=== PATIENT | male | born 1970 | race Two or more races ===

== ENCOUNTER 2018-02-21 10:47 | Emergency (ER) | payer MEDICAID, SELFPAY ==
[~2018-02-21] VITALS: Ht 167.6 cm; Wt 81.2 kg
[~2018-02-21 10:47] MED LIST: DEPAKOTE250 MG PO
[2018-02-21 11:07] VITALS: BP 131/91
--- NOTE | 2018-02-21 11:24 | Emergency Room Report ---
History of Present Illness General Chief Complaint: Pain Source: Patient Present Illness HPI 48-year-old male presents with left calf numbness that started around 6 AM this morning, it was precipitated by him sitting in a car and laying his leg over the dashboard, when he took it down he noticed it was numb and then it did not gain sensation up until just now and so he decided come in, he currently feels improvement. He denies ever having any pain, he denies any cough, chest pain palpitations, he reports no leg swelling, and he reports he never felt weak it just felt like it was asleep and numb and then he is only now getting sensation. Allergies: Coded Allergies: No Known Allergies (Unverified , 03/27/14) Patient History Past Medical History: see triage record Reviewed Nursing Documentation: PMH: Agreed; PSxH: Agreed Nursing Documentation-PMH Past Medical History: No History, Except For Hx Hypertension: Yes Review of Systems All Other Systems: negative except mentioned in HPI Physical Exam Vital Signs Date Time Temp Pulse Resp B/P (MAP) Pulse Ox O2 Delivery O2 Flow Rate FiO2 02/21/18 10:57 98.1 70 20 131/91 97 Room Air 98.1 Sp02 EP Interpretation: reviewed, normal General Appearance: no apparent distress, alert, non-toxic Head: normocephalic Eyes: bilateral eye normal inspection, bilateral eye PERRL, bilateral eye EOMI ENT: normal ENT inspection, hearing grossly normal, normal pharynx, no angioedema, normal voice, moist mucus membranes Neck: normal inspection, full range of motion, supple, supple/symm/no masses Respiratory: chest non-tender, lungs clear, normal breath sounds, chest symmetrical, palpation of chest normal Cardiovascular #1: normal peripheral pulses, regular rate, rhythm Cardiovascular #2: 2+ radial (R), 2+ radial (L), 2+ dorsalis pedis (R), 2+ dorsalis pedis (L) Gastrointestinal: normal inspection, non tender, soft, no mass, no guarding, no rebound Rectal: deferred Genitourinary: normal inspection, no CVA tenderness Musculoskeletal: back normal, gait/station normal, normal range of motion, non- tender, no calf tenderness, Amna's Sign negative Neurologic: alert, responsive, offset proof press operator III-XII nml as tested, motor strength/tone normal, sensory intact - To light touch and pinprick in all 4 extremities and calves symmetrically, speech normal Psychiatric: judgement/insight normal, memory normal, mood/affect normal, no suicidal/homicidal ideation Skin: normal color, no rash, warm/dry, normal turgor Lymphatic: no adenopathy Medical Decision Making Diagnostic Impression: Primary Impression: Nerve palsy ER Course Patient with resolution of the calf numbness, no evidence for DVT on examination or history, he never had pain or swelling, it was transient numbness that occurred in the distribution distal to where his leg was propped up against the dashboard, I suspect a transient nerve palsy, we will discharge Last Vital Signs Date Time Temp Pulse Resp B/P (MAP) Pulse Ox O2 Delivery O2 Flow Rate FiO2 02/21/18 11:07 98.1 20 131/91 97 Room Air 98.1 02/21/18 10:57 70 Disposition: HOME, SELF-CARE Condition: Stable Referrals: NOT CHOSEN [facility]/,REFERRING (PCP) Alyson Burk MD Patient Instructions: Radial Nerve Palsy ZAIDA GIANG M.D Feb 21, 2018 11:24
[2018-02-21 11:28] VITALS: BP 131/91
== END 2018-02-21 11:32 | disposition home or self-care (01) ==
LOC: EMR 11:21
DX: G58.8 Other specified mononeuropathies (principal); I10 Essential (primary) hypertension
CPT/HCPCS: 99282

== ENCOUNTER 2019-02-18 00:23 | Emergency (ER) | payer MEDICAID ==
[~2019-02-18] VITALS: Ht 167.6 cm; Wt 77.1 kg
--- NOTE | 2019-02-18 01:03 | Emergency Room Report ---
History of Present Illness General Chief Complaint: Headache Source: Patient Present Illness HPI Denies this is a 49-year-old [place] man with a history of hypertension. He presents with chief complaint of headache and hypertension. Onset for last 5 days. No nausea no vomiting. Pain is throbbing and diffuse in nature. He went to [place] twice in the last week already. CAT scan and blood work normal per patient. He is only taking 5 mg of amlodipine. He said his blood pressure was in the 180 systolic tonight. He took an extra dose of amlodipine before coming in. No focal deficit. No other complaint. Allergies: Coded Allergies: No Known Allergies (Unverified , 03/27/14) Patient History Past Medical History: see triage record, old chart reviewed, HTN Past Surgical History: none Pertinent Family History: none Social History: Denies: smoking Immunizations: other Reviewed Nursing Documentation: PMH: Agreed; PSxH: Agreed Nursing Documentation-PMH Hx Hypertension: Yes Review of Systems Eye: Denies: eye pain, blurred vision ENT: Denies: ear pain, nose congestion, throat swelling Respiratory: Denies: cough, shortness of breath Cardiovascular: Denies: chest pain, palpitations Gastrointestinal: Denies: abdominal pain, diarrhea, nausea, vomiting Musculoskeletal: Denies: back pain, joint pain Skin: Denies: rash Neurological: Reports: headache; Denies: numbness Endocrine: Denies: increased thirst, increased urine Hematologic/Lymphatic: Denies: easy bruising All Other Systems: negative except mentioned in HPI Physical Exam Vital Signs Date Time Temp Pulse Resp B/P (MAP) Pulse Ox O2 Delivery O2 Flow Rate FiO2 02/18/19 00:47 98.4 96 17 128/92 (104) 97 Room Air Levels unremarkable Sp02 EP Interpretation: reviewed, normal General Appearance: well appearing, no apparent distress, alert Head: normocephalic, atraumatic Eyes: bilateral eye PERRL, bilateral eye EOMI ENT: hearing grossly normal, normal pharynx Neck: full range of motion, supple, no meningismus Respiratory: chest non-tender, lungs clear, normal breath sounds Cardiovascular #1: regular rate, rhythm, no murmur Gastrointestinal: normal bowel sounds, non tender, no mass, no organomegaly, no bruit, non-distended Musculoskeletal: back normal, gait/station normal, normal range of motion Psychiatric: mood/affect normal Medical Decision Making Diagnostic Impression: Primary Impression: Headache Qualified Codes: G44.209 - Tension-type headache, unspecified, not intractable Additional Impression: Hypertension Qualified Codes: I10 - Essential (primary) hypertension ER Course Patient presents with headache. He had work-up with labs and CT scan at [place] already. I see no need to repeat. Blood pressure unremarkable. Will discharge home. Last Vital Signs Date Time Temp Pulse Resp B/P (MAP) Pulse Ox O2 Delivery O2 Flow Rate FiO2 02/18/19 00:47 98.4 96 17 128/92 (104) 97 Room Air Status: improved Disposition: HOME, SELF-CARE Scripts Ibuprofen* (MOTRIN*) 600 Mg Tablet 600 MG ORAL THREE TIMES A DAY, #30 TAB 0 Refills Prov: Rai Barros MD 02/18/19 Amlodipine Besylate (Norvasc) 10 Mg Tablet 10 MG ORAL DAILY, #90 TAB Prov: Rai Barros MD 02/18/19 Referrals: [facility],REFERRING (PCP) Patient Instructions: Tension Headache Additional Instructions: Increase your amlodipine to 10 mg a day. Follow-up with your doctor in 7 days. Return if symptoms worsen. Rai Barros MD Feb 18, 2019 01:03
[2019-02-18 01:08] VITALS: BP 128/92
--- NOTE | 2019-02-18 01:09 | NUR ---
ER Nurse Note: Pt came to from home c/o headache since 5 days. Pt stated he took more of his prescribed BP med but headache is presistant. BP in triage normotensive. Pt a&ox4, VSS, no signs of distress. Pt stated he has been anxious due to headache. [facility]
[2019-02-18] MEDS ORDERED: NORVASC10 MG ORAL (01:15)
[2019-02-18] MEDS ORDERED: IBUPROFEN600 MG ORAL (01:15)
--- NOTE | 2019-02-18 01:24 | NUR ---
ER DISCHARGE NOTE: Patient is cleared to be discharged per ERMD, pt is aox4, on room air, with stable vital signs. pt was given dc and prescription instructions, pt was able to verbalize understanding, pt id band removed without complications. pt is able to ambulate with steady gait. pt took all belongings.
[2019-02-18 01:25] VITALS: BP 128/92
== END 2019-02-18 01:29 | disposition home or self-care (01) ==
LOC: EMR 00:35
DX: G44.209 Tension-type headache, unspecified, not intractable (principal); I10 Essential (primary) hypertension
CPT/HCPCS: 99282

== ENCOUNTER 2019-02-24 16:23 | Emergency (ER) | payer MEDICAID ==
[~2019-02-24] VITALS: Ht 170.2 cm; Wt 81.6 kg
[~2019-02-24 16:23] MED LIST changes: +IBUPROFEN600 MG ORAL; +NORVASC10 MG ORAL
[2019-02-24] MEDS ORDERED: HALOPERIDOL5 MG ORAL (16:30)
[2019-02-24 17:05] VITALS: BP 138/96
--- NOTE | 2019-02-24 17:06 | NUR ---
ED Nurse Note: pt walked in due sleeplessness for 10 days, pt stated he cant sleep because he runout of his medication, haldol 5mg, benzotropine 1mg, and depakote 500mg. pt denies si, pt aox4. pt is seen by marlon gilliam. will continue to monitor
[2019-02-24] MEDS ORDERED: DiphenhydrAMINE 50mg/ml Inj IM ONE (17:15)
--- NOTE | 2019-02-24 17:29 | Emergency Room Report ---
History of Present Illness General Chief Complaint: Medication Refill Source: Medical Record Present Illness HPI 49 YO male presents to the ED c/o being out of his psychiatric medications x 10- 11 days. he reports Not sleeping in 11 days due to being out of medications. Pt. describes abrupt discontinuation of his psychiatric medications that he has been on for years. Pt. reports having auditory hallucinations, irritability and 3/10 in severity generalized BELLO. Denies sudden onset of BELLO. Denies manic symptoms. Pt. denies drug use. He reports 2 previous psychiatric hospitalizations. Pt. denies SI/HI. Pt. states he takes Haldol 5mg and Cogentin Daily. He reports he requires a new psychiatric provider for medication management as his no longer available. Denies PSA's. Allergies: Coded Allergies: No Known Allergies (Unverified , 03/27/14) Patient History Past Medical History: see triage record, psych hx - schizophrenia Past Surgical History: none Pertinent Family History: none Reviewed Nursing Documentation: PMH: Agreed; PSxH: Agreed Nursing Documentation-PMH Past Medical History: No History, Except For Hx Hypertension: Yes History Of Psychiatric Problem: Yes - bipolar Review of Systems All Other Systems: negative except mentioned in HPI Physical Exam Vital Signs Date Time Temp Pulse Resp B/P (MAP) Pulse Ox O2 Delivery O2 Flow Rate FiO2 02/24/19 16:32 97.9 87 18 138/96 (110) 96 Room Air Sp02 EP Interpretation: reviewed, normal General Appearance: no apparent distress, alert, GCS 15, non-toxic Head: normocephalic, atraumatic Eyes: bilateral eye normal inspection, bilateral eye PERRL ENT: hearing grossly normal, normal voice Neck: full range of motion Respiratory: lungs clear, normal breath sounds, speaking full sentences Cardiovascular #1: regular rate, rhythm Gastrointestinal: non tender, soft Genitourinary: normal inspection Musculoskeletal: back normal, gait/station normal, normal range of motion, non- tender Neurologic: alert, oriented x3, responsive, motor strength/tone normal, sensory intact, speech normal, grossly normal Psychiatric: judgement/insight normal, mood/affect normal, no suicidal/ homicidal ideation, other - not responding to internal stimuli. Lymphatic: no adenopathy Medical Decision Making PA Attestation Dr. Schmid Is my supervising Physician whom patient management has been discussed with. Diagnostic Impression: Primary Impression: Encounter for medication refill Additional Impressions: Schizophrenia Qualified Codes: F20.9 - Schizophrenia, unspecified Insomnia disorder Qualified Codes: G47.00 - Insomnia, unspecified ER Course 49 YO male presents to the ED c/o being out of his psychiatric medications x 10- 11 days. he reports Not sleeping in 11 days due to being out of medications. Pt. describes abrupt discontinuation of his psychiatric medications that he has been on for years. Pt. reports having auditory hallucinations, irritability and 3/10 in severity generalized BELLO. Denies sudden onset of BELLO. Denies manic symptoms. Pt. denies drug use. He reports 2 previous psychiatric hospitalizations. Pt. denies SI/HI. Pt. states he takes Haldol 5mg and Cogentin Daily. He reports he requires a new psychiatric provider for medication management as his no longer available. Denies PSA's. Pt is hyperactive, and has a very anxious and restless affect. Ddx considered but are not limited to OD, SI/HI, psychosis, UTI, intoxication, manic episode just to name a few. Vital signs: are WNL, pt. is afebrile H&PE are most consistent with behavioral/mental health issue requiring medication refill ORDERS:None required at this time. ED INTERVENTIONS: - 5mg Haldol PO -50mg Benadryl IM -500mg Depakote PO -I do not identify an emergent condition at this time. With current presentation , pt. is stable for close outpatient follow up and conservative treatment. D/ w pt. to return promptly to ED with worsening or new symptoms.- Pt. verbalizes' understanding and agreement with proposed treatment plan. DISCHARGE: At this time pt. is stable for d/c to home. Will provide printed patient care instructions, and any necessary prescriptions. Care plan and follow up instructions have been discussed with the patient prior to discharge. Last Vital Signs Date Time Temp Pulse Resp B/P (MAP) Pulse Ox O2 Delivery O2 Flow Rate FiO2 02/24/19 17:05 97.9 87 18 138/96 96 Room Air Disposition: HOME, SELF-CARE Condition: Stable Scripts Divalproex Sodium (Depakote) 500 Mg Tablet. 500 MG PO BID for 14 Days, #28 TAB Prov: Odette Block 02/24/19 Benztropine Mesylate* (COGENTIN*) 0.5 Mg Tablet 1 MG PO DAILY for 14 Days, #28 TAB Prov: Odette Block 02/24/19 Haloperidol (Haloperidol) 5 Mg Tablet 5 MG ORAL DAILY, #14 TAB 0 Refills Prov: Odette Block 02/24/19 Referrals: [facility] Patient Instructions: Medicine Refill at the Emergency Department, Schizophrenia Additional Instructions: Take medications as directed. Follow up with a Mental Health Specialist/ Psychiatrist in 3 days, even if your symptoms have resolved. --Please review [facility] [[email or web address] resource information provided Return sooner to ED if new symptoms occur, or current symptoms become worse. - Please note that this Emergency Department Report was dictated using [employer] technologist technology software, occasionally this can lead to erroneous entry secondary to interpretation by the dictation equipment. Odette Block Feb 24, 2019 17:29
--- NOTE | 2019-02-24 17:30 | NUR ---
ED Nurse Note: pt medicated as ordered. pt able to tolerate meds. will continue to monitor.
[2019-02-24] MEDS ORDERED: DEPAKOTE500 MG PO (17:48)
[2019-02-24] MEDS ORDERED: BENZTROPINE ME0.5 MG PO (17:48)
[2019-02-24] MEDS ORDERED: HALDOL5 MG ORAL (17:48)
[2019-02-24] MEDS ORDERED: Depakote 500mg tab ORAL ONE (18:00)
--- NOTE | 2019-02-24 18:08 | NUR ---
ED Nurse Note: pt medicated as ordered. pt able to tolerate po meds
[2019-02-24 18:10] VITALS: BP 138/96
== END 2019-02-24 18:10 | disposition home or self-care (01) ==
LOC: EMR 17:20
DX: F20.9 Schizophrenia, unspecified (principal); G47.00 Insomnia, unspecified; Z76.0 Encounter for issue of repeat prescription; I10 Essential (primary) hypertension; F31.9 Bipolar disorder, unspecified
CPT/HCPCS: 96372; 99283; J1200

== ENCOUNTER 2019-03-10 22:26 | Emergency (ER) | payer MEDICAID ==
[~2019-03-10] VITALS: Ht 167.6 cm; Wt 77.1 kg
[~2019-03-10 22:26] MED LIST changes: +BENZTROPINE ME0.5 MG PO; +DEPAKOTE500 MG PO; +HALDOL5 MG ORAL; +HALOPERIDOL5 MG ORAL
[2019-03-10 23:00] VITALS: BP 138/98
--- NOTE | 2019-03-10 23:33 | NUR ---
ED Nurse Note: PT WALKED IN C/O PAIN IN NECK AND HEAD X 3 DAYS. DENIES ANY RECENT INJURIES. DENIES N/V NOR PHOTOPHOBIA AT THIS TIME BUT REPORTS DIZZINESS. PT AMBULATORY W/STEADY GAIT, VSS, RESP EVEN AND UNLABORED ON RA, WILL CONT MONITOR.
[2019-03-11] MEDS ORDERED: Ketorolac 60mg Inj IM ONE (00:30)
[2019-03-11] MEDS ORDERED: HYDROcodone/Acetamin 5/325 tab ORAL ONE (00:30)
[2019-03-11] MEDS ORDERED: HALOPERIDOL5 MG ORAL (00:46)
[2019-03-11] MEDS ORDERED: BENZTROPINE ME0.5 MG PO (00:46)
--- NOTE | 2019-03-11 00:52 | NUR ---
ED Nurse Note: pt cleared to be d/c per ERMD, pt discharge and aftercare instruction provided w/ prescription, pt education done via discussion and handout, pt advised to follow up with pcp or return to ed if changes in condition, vss, ambulatory w/ steady gait, left w/ all belongings.
[2019-03-11 00:54] VITALS: BP 127/56
--- NOTE | 2019-03-11 02:12 | Emergency Room Report ---
History of Present Illness General Chief Complaint: Headache Source: Patient Present Illness HPI Patient presents with complaints of headache reports that he feels the pain in the occipital region across both sides Pain came on about 2 days ago and has been slowly progressing denies any focal weakness denies any fall or trauma Denies any chest pain or shortness of breath Denies any fevers denies any photophobia Patient reports that he has had headaches in the past and this feels fairly similar to that After further questioning patient also requesting refill of some of his psychiatric medications Allergies: Coded Allergies: No Known Allergies (Unverified , 03/27/14) Patient History Past Medical History: see triage record Reviewed Nursing Documentation: PMH: Agreed; PSxH: Agreed Nursing Documentation-PMH Past Medical History: No History, Except For Hx Hypertension: Yes Review of Systems All Other Systems: negative except mentioned in HPI Physical Exam Vital Signs Date Time Temp Pulse Resp B/P (MAP) Pulse Ox O2 Delivery O2 Flow Rate FiO2 03/10/19 22:30 98.4 97 22 146/99 (115) 97 Room Air Sp02 EP Interpretation: reviewed, normal General Appearance: well appearing, no apparent distress Head: normocephalic, atraumatic Eyes: bilateral eye PERRL, bilateral eye EOMI ENT: hearing grossly normal, normal pharynx, TMs + canals normal, uvula midline Neck: full range of motion, supple, no meningismus, no bony tend Respiratory: lungs clear, normal breath sounds, no rhonchi, no respiratory distress, no retraction, no accessory muscle use Cardiovascular #1: normal peripheral pulses, regular rate, rhythm, no edema, no gallop, no JVD, no murmur Gastrointestinal: normal bowel sounds, non tender, soft, no mass, no organomegaly, non-distended, no guarding, no hernia, no pulsatile mass, no rebound Genitourinary: no CVA tenderness Musculoskeletal: normal inspection Neurologic: oriented x3, responsive, transcript clerk III-XII nml as tested, motor strength/ tone normal, sensory intact Psychiatric: mood/affect normal Skin: no rash Lymphatic: normal inspection, no adenopathy Medical Decision Making Diagnostic Impression: Primary Impression: Headache ER Course Multiple differentials including but not limited to neurological, neurosurgical , infectious pathology entertained Patient has a benign neurological exam is treated for his pain and feels significantly improved I did provide several medications for outpatient Continuation however he understands the importance of close outpatient follow- up for further medication Last Vital Signs Date Time Temp Pulse Resp B/P (MAP) Pulse Ox O2 Delivery O2 Flow Rate FiO2 03/11/19 00:54 98.4 03/11/19 00:54 89 18 127/56 98 Room Air Status: improved Disposition: HOME, SELF-CARE Condition: Improved Scripts Haloperidol (HALOPERIDOL) 5 Mg Tablet 5 MG ORAL DAILY, #10 TAB 0 Refills Prov: Giovanna Boston DO 03/11/19 Benztropine Mesylate* (COGENTIN*) 0.5 Mg Tablet 0.5 MG PO DAILY, #10 TAB Prov: Giovanna Boston DO 03/11/19 [facility],REFERRING (PCP) Patient Instructions: General Headache Without Cause Additional Instructions: Patient is provided with the discharge instructions notified to follow up with primary doctor in the next 2-3 days otherwise return to the er with any worsening symptoms. Please note that this report is being documented using [employer] technology. This can lead to erroneous entry secondary to incorrect interpretation by the dictating instrument. Giovanna Boston DO Mar 11, 2019 02:12
== END 2019-03-11 00:54 | disposition home or self-care (01) ==
LOC: EMR 22:49
DX: R51 Headache (principal); I10 Essential (primary) hypertension
CPT/HCPCS: 96372; 99283

== ENCOUNTER 2019-04-01 03:35 | Emergency (ER) | payer MEDICAID ==
[~2019-04-01] VITALS: Ht 170.2 cm; Wt 81.6 kg
[2019-04-01 03:51] VITALS: BP 143/98
[2019-04-01] MEDS ORDERED: HYDROCHLOROTHIA25 MG ORAL (04:00)
--- NOTE | 2019-04-01 04:00 | Emergency Room Report ---
History of Present Illness General Chief Complaint: Hypertension Source: Patient Present Illness HPI This is a 49-year-old male with history of hypertension. He take Norvasc for this. He presents with chief complaint of high blood pressure. He said at home his blood pressure 160/107. He did not take any medication. He has no symptoms. No nausea no vomiting. No headache. No chest pain. No shortness of breath. Allergies: Coded Allergies: No Known Allergies (Unverified , 03/27/14) Patient History Past Medical History: see triage record, old chart reviewed, HTN Past Surgical History: none Pertinent Family History: none Social History: Denies: smoking Immunizations: other Reviewed Nursing Documentation: PMH: Agreed; PSxH: Agreed Nursing Documentation-PMH Past Medical History: No History, Except For Hx Hypertension: Yes Review of Systems Eye: Denies: eye pain, blurred vision ENT: Denies: ear pain, nose congestion, throat swelling Respiratory: Denies: cough, shortness of breath Cardiovascular: Denies: chest pain, palpitations Gastrointestinal: Denies: abdominal pain, diarrhea, nausea, vomiting Musculoskeletal: Denies: back pain, joint pain Skin: Denies: rash Neurological: Denies: headache, numbness Endocrine: Denies: increased thirst, increased urine Hematologic/Lymphatic: Denies: easy bruising All Other Systems: negative except mentioned in HPI Physical Exam Vital Signs Date Time Temp Pulse Resp B/P (MAP) Pulse Ox O2 Delivery O2 Flow Rate FiO2 04/01/19 03:37 98.2 85 16 143/98 (113) 95 Room Air Vitals with high blood pressure Sp02 EP Interpretation: reviewed, normal General Appearance: well appearing, no apparent distress, alert Head: normocephalic, atraumatic Eyes: bilateral eye PERRL, bilateral eye EOMI ENT: hearing grossly normal, normal pharynx Neck: full range of motion, supple, no meningismus Respiratory: chest non-tender, lungs clear, normal breath sounds Cardiovascular #1: regular rate, rhythm, no murmur Gastrointestinal: normal bowel sounds, non tender, no mass, no organomegaly, no bruit, non-distended Musculoskeletal: back normal, gait/station normal, normal range of motion Psychiatric: mood/affect normal Medical Decision Making Diagnostic Impression: Primary Impression: Hypertension Qualified Codes: I10 - Essential (primary) hypertension ER Course Patient with high blood pressure. Without any intervention, his blood pressure right now is 135/93. We will add a water pill. No evidence of ACS, PE, dissection or endorgan damage. Will discharge home. Last Vital Signs Date Time Temp Pulse Resp B/P (MAP) Pulse Ox O2 Delivery O2 Flow Rate FiO2 04/01/19 03:51 98.2 16 143/98 95 Room Air 04/01/19 03:51 85 Status: improved Disposition: HOME, SELF-CARE Condition: Stable Scripts Hydrochlorothiazide* (HYDROCHLOROTHIAZIDE*) 25 Mg Tablet 25 MG ORAL DAILY, #30 TAB Prov: Rai Barros MD 04/01/19 Additional Instructions: Follow-up with your doctor in 7 days for recheck. Return if worse. Rai Barros MD Apr 01, 2019 04:00
[2019-04-01 04:10] VITALS: BP 143/98
== END 2019-04-01 04:11 | disposition home or self-care (01) ==
LOC: EMR 03:59
DX: I10 Essential (primary) hypertension (principal)
CPT/HCPCS: 99282

== ENCOUNTER 2019-04-04 03:01 | Emergency (ER) | payer MEDICAID ==
[~2019-04-04] VITALS: Ht 170.2 cm; Wt 81.6 kg
[~2019-04-04 03:01] MED LIST changes: +HYDROCHLOROTHIA25 MG ORAL
--- NOTE | 2019-04-04 03:33 | Emergency Room Report ---
History of Present Illness General Chief Complaint: Headache Source: Patient Present Illness HPI Patient 49-year-old male presents for increased headache. Patient reports having increased occipital headache. He reports having intermittent episodes of headache for approximately 1 month. He states that he had previous negative CT imaging at [place] approximately 1 month ago. He denies any fever. He reports having prior history of hypertension. He reports taking amlodipine. He states that he is also bipolar and has been taking Depakote as well as haloperidol. He denies any fever. He denies any neck stiffness. He denies any extremity weakness. Allergies: Coded Allergies: No Known Allergies (Unverified , 03/27/14) Patient History Past Medical History: see triage record Reviewed Nursing Documentation: PMH: Agreed; PSxH: Agreed Nursing Documentation-PMH Hx Hypertension: Yes History Of Psychiatric Problem: Yes - Bipolar Review of Systems All Other Systems: negative except mentioned in HPI Physical Exam Vital Signs Date Time Temp Pulse Resp B/P (MAP) Pulse Ox O2 Delivery O2 Flow Rate FiO2 04/04/19 03:04 98.2 101 16 146/97 (113) 95 Room Air Sp02 EP Interpretation: reviewed, normal General Appearance: normal inspection, well appearing, no apparent distress, alert, GCS 15, Chronically Ill Head: atraumatic ENT: normal ENT inspection, normal voice Neck: normal inspection, full range of motion, supple, no bony tend Respiratory: normal inspection, lungs clear, normal breath sounds, no respiratory distress, no retraction, no wheezing Cardiovascular #1: regular rate, rhythm, no edema Gastrointestinal: normal inspection, normal bowel sounds, non tender, soft, no guarding, no hernia Genitourinary: no CVA tenderness Musculoskeletal: normal inspection, back normal, normal range of motion Neurologic: normal inspection, alert, oriented x3, responsive, structural engineering project manager III-XII nml as tested, speech normal Psychiatric: normal inspection, judgement/insight normal, mood/affect normal Medical Decision Making Diagnostic Impression: Primary Impression: Headache ER Course Patient presented for headache. Differential diagnoses included but was not limited to skull fracture, subarachnoid hemorrhage, meningitis, aneurysm, mass lesion, intracranial hemorrhage. Per patient's report he has had recent imaging of his head. CT imaging and previously been performed at [place]. Patient does not appear to be in any acute distress. His blood pressure appears to be adequately controlled at this time. Because of complexity of patient's case laboratory tests were ordered. Last Vital Signs Date Time Temp Pulse Resp B/P (MAP) Pulse Ox O2 Delivery O2 Flow Rate FiO2 04/04/19 03:04 98.2 101 16 146/97 (113) 95 Room Air Jimi Higgins MD Apr 04, 2019 03:33
--- NOTE | 2019-04-04 03:41 | NUR ---
ED Nurse Note: pt walked in c/o chronic headache and high blood pressure, pt reports when he took the bp at home it was 169/117, bp at the bedside 130/85. pt denies cp, denies sob, ambulatory w/ steady gait, no weakness noted, AA&ox4, gcs=15, skin warm and dry, resp even and unlabored on RA, vss, NSR on diagnostic cardiac sonographer, will cont monitor.
[2019-04-04 03:44] VITALS: BP 130/85
[2019-04-04 03:50] LABS: BASOPHILS % (AUTO) 0.7 % (0.0-2.0); EOSINOPHILS % (AUTO) 8.2 % (0.0-3.0); HEMOGLOBIN 14.5 G/DL (14.2-18.0); MEAN CORPUSCULAR VOLUME 89 FL (80-99); MONOCYTES % (AUTO) 7.2 % (1.0-10.0); NEUTROPHILS % (AUTO) 59.9 % (45.0-75.0); PLATELET COUNT 232 K/UL (150-450); RED BLOOD COUNT 4.73 M/UL (4.70-6.10); RED CELL DISTRIBUTION WIDTH 10.9 % (11.6-14.8)
[2019-04-04 04:00] LABS: ANION GAP 12 mmol/L (5-15); BLOOD UREA NITROGEN 12 mg/dL (7-18); CALCIUM 9.2 MG/DL (8.5-10.1); CARBON DIOXIDE 24 MMOL/L (21-32); CHLORIDE 107 MMOL/L (98-107); CREATININE 0.9 MG/DL (0.55-1.30); POTASSIUM 3.6 MMOL/L (3.5-5.1); SODIUM 143 MMOL/L (136-145)
[2019-04-04 04:04] LABS: ALANINE AMINOTRANSFERASE 32 U/L (12-78); ALBUMIN 4.4 G/DL (3.4-5.0); ALBUMIN/GLOBULIN RATIO 1.6 (1.0-2.7); ALKALINE PHOSPHATASE 50 U/L (46-116); ASPARTATE AMINO TRANSFERASE 16 U/L (15-37); BILIRUBIN,TOTAL 0.5 MG/DL (0.2-1.0)
[2019-04-04] MEDS ORDERED: DiphenhydrAMINE 50mg/ml Inj IVP ONE (04:30)
[2019-04-04 05:08] VITALS: BP 130/85
--- NOTE | 2019-04-04 05:09 | NUR ---
ER DISCHARGE NOTE: Patient is cleared to be discharged per ERMD, pt is aox4, on room air, with stable vital signs. pt was given dc and prescription instructions, pt was able to verbalize understanding, pt id band and iv site removed without complications. pt is able to ambulate with steady gait. pt took all belongings.
== END 2019-04-04 05:09 | disposition home or self-care (01) ==
LOC: EMR 03:21
DX: R51 Headache (principal); F31.9 Bipolar disorder, unspecified; I10 Essential (primary) hypertension
CPT/HCPCS: 36415; 80053; 80164; 85025; 96374; 96375; 99284; J0780; J1200; J7040

== ENCOUNTER 2019-06-14 03:26 | Emergency (ER) | payer MEDICAID ==
[~2019-06-14] VITALS: Ht 170.2 cm; Wt 81.6 kg
[2019-06-14 03:49] VITALS: BP 151/85
--- NOTE | 2019-06-14 03:51 | NUR ---
ER Nurse Note: Pt walked in c/o itching in RT groin area for one week. Pt stated unk cause. Site clean, intact. Denies trauma, dischage, painful urination. Will continue to montior.
[2019-06-14] MEDS ORDERED: CLOTRIMAZOLE30 GM TP (04:00)
[2019-06-14] MEDS ORDERED: HydrOXYzine tab 25mg tab ORAL ONE (04:00)
[2019-06-14] MEDS ORDERED: BENADRYL25 MG ORAL (04:00)
--- NOTE | 2019-06-14 04:20 | Emergency Room Report ---
History of Present Illness General Chief Complaint: Skin Rash/Abscess Source: Patient Present Illness HPI Patient is a 49-year-old male who presented after increased rash to his genital area. Patient states this is been there for at least 1 week. He reports having used topical medications without any improvement. He cannot state the name of the medications which she is using. He reports of increased generalized itchiness. He reports taking psychiatric medications but denies any other medications other than Norvasc. He cannot recall what medications he is using. He denies any general discharge. He reports having some itchiness to his scrotal area as well as to his inguinal areas. Denies other locations of discomfort. Allergies: Coded Allergies: No Known Allergies (Unverified , 03/27/14) Patient History Past Medical History: see triage record Reviewed Nursing Documentation: PMH: Agreed; PSxH: Agreed Nursing Documentation-PMH Hx Hypertension: Yes Review of Systems All Other Systems: negative except mentioned in HPI Physical Exam Vital Signs Date Time Temp Pulse Resp B/P (MAP) Pulse Ox O2 Delivery O2 Flow Rate FiO2 06/14/19 03:37 98.1 84 18 151/85 (107) 99 Room Air General Appearance: well appearing, no apparent distress, alert, GCS 15 Head: normocephalic, atraumatic ENT: hearing grossly normal, normal voice Neck: full range of motion, supple Respiratory: no respiratory distress, speaking full sentences Neurologic: normal inspection, alert, oriented x3, responsive, normal gait Psychiatric: depressed affect Skin: rash - excoriated to patch of scrotum Medical Decision Making Diagnostic Impression: Primary Impression: Tinea cruris ER Course Patient presented for skin rash. Differential diagnosis included but was not limited to tinea cruris, hidradenitis suppuritiva, cellulitis among others. Patient has a benign exam does not appear to require any laboratory testing at this time. Patient appears to have a excoriated area to his perineal area which appears to be a fungal infection. There does not appear to be any evidence of secondary infection at this time. Patient was given prescription for anti-itching medications as well as topical antifungal medication. Last Vital Signs Date Time Temp Pulse Resp B/P (MAP) Pulse Ox O2 Delivery O2 Flow Rate FiO2 06/14/19 03:49 98.1 76 18 151/85 99 Room Air Status: improved Disposition: HOME, SELF-CARE Condition: Stable Scripts Diphenhydramine Hcl* (BENADRYL*) 25 Mg Capsule 25 MG ORAL Q6H PRN for Itching, #30 CAP Prov: Jimi Higgins MD 06/14/19 Clotrimazole (Clotrimazole) 30 Gm Cream..g. 30 GM TP TWICE A DAY, #30 GM Prov: Jimi Higgins MD 06/14/19 Referrals: [facility],REFERRING (PCP) Patient Instructions: Rash Additional Instructions: Follow up with your doctor for recheck. Avoid scratching the area Jimi Higgins MD Jun 14, 2019 04:20
[2019-06-14 04:25] VITALS: BP 151/85
--- NOTE | 2019-06-14 04:25 | NUR ---
ER Nurse Note: Patient seen, treated, medically cleared to be discharged per ERMD. Discharge instructions and prescriptons given with repeat verbalization by pt. Instructed pt to follow up with primary care physican within one week. Pt is aox4, on room air, with stable vital signs. ID band removed. Pt ambulatory; left with all belongings.
== END 2019-06-14 04:25 | disposition home or self-care (01) ==
LOC: EMR 04:00
DX: B35.6 Tinea cruris (principal); I10 Essential (primary) hypertension
CPT/HCPCS: 99282

== ENCOUNTER 2019-12-01 01:25 | Emergency (ER) | payer MEDICAID ==
[~2019-12-01] VITALS: Ht 167.6 cm; Wt 81.6 kg
[~2019-12-01 01:25] MED LIST changes: +BENADRYL25 MG ORAL; +CLOTRIMAZOLE30 GM TP
[2019-12-01 01:30] VITALS: BP 147/96
--- NOTE | 2019-12-01 01:30 | NUR ---
ED Nurse Note: Pt ambulated to ED from home c/o 05/08 headache x3days, pt states he has not been able to sleep for 10 days. Pt has HTN and has been compliant, denies trauma or N/V. VSS BP 146/96. Pt is A&Ox4. ERMD at bedside
[2019-12-01] MEDS ORDERED: DiphenhydrAMINE 50mg/ml Inj IVP ONE (01:45)
--- NOTE | 2019-12-01 01:52 | Emergency Room Report ---
History of Present Illness General Chief Complaint: Headache Source: Patient Present Illness HPI 49-year-old male history of bipolar disorder, hypertension, chronic headache presented for acute on chronic headache. Patient has been seen multiple times here in the past for headache. He states he was seen at [place] recently as well for headache. He states that headache is been persistent for the past week. Occipital nonradiating. No fevers no nausea no vomiting. Headache does improve with Tylenol but does return. He also states he has been out of his medication, Haldol benztropine and Depakote for the last week. Pain is currently 10 out of 10. He has not been able to sleep for the past week either. Allergies: Coded Allergies: No Known Allergies (Unverified , 03/27/14) COVID-19 Screening Contact w/high risk pt: No Recent Travel to affected area: No Experienced COVID-19 symptoms?: No Patient History Reviewed Nursing Documentation: PMH: Agreed; PSxH: Agreed Nursing Documentation-PMH Past Medical History: No History, Except For Hx Hypertension: Yes History Of Psychiatric Problem: Yes - anxiety Review of Systems All Other Systems: negative except mentioned in HPI Physical Exam Vital Signs Date Time Temp Pulse Resp B/P (MAP) Pulse Ox O2 Delivery O2 Flow Rate FiO2 12/01/19 01:30 98.2 109 22 147/96 (113) 93 Room Air Sp02 EP Interpretation: reviewed, normal General Appearance: well appearing, no apparent distress Head: normocephalic, atraumatic Eyes: bilateral eye PERRL, bilateral eye EOMI ENT: hearing grossly normal, moist mucus membranes Neck: full range of motion, supple Respiratory: lungs clear, normal breath sounds, no rhonchi, no respiratory distress, no retraction, no wheezing Cardiovascular #1: normal peripheral pulses, regular rate, rhythm, no murmur Gastrointestinal: non tender, soft, non-distended, no guarding Neurologic: alert, 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 He has been seen multiple times in the past for the same. He has had CT scans in the past which were normal. His neurologic exam was benign. My differential included but not limited to migraine headache, dehydration, medication withdrawal, did consider stroke, mass lesions however with his exam leave this is less likely. Clinical course-patient given migraine cocktail including IV fluids, Compazine and Benadryl. On reassessment patient feeling improved. On reevaluation: Pain improved patient resting comfortably Plan-discharge home with outpatient follow-up. I did refill his outpatient medications which I do believe will assist in his insomnia and as well. Last Vital Signs Date Time Temp Pulse Resp B/P (MAP) Pulse Ox O2 Delivery O2 Flow Rate FiO2 12/01/19 01:30 98.2 109 22 147/96 (113) 93 Room Air Status: improved Disposition: HOME, SELF-CARE Condition: Improved Scripts Benztropine Mesylate* (COGENTIN*) 0.5 Mg Tablet 0.5 MG PO DAILY, #10 TAB Prov: Abdulkadir Rowell M.D. 12/01/19 Haloperidol (HALOPERIDOL) 5 Mg Tablet 5 MG ORAL DAILY, #30 TAB 0 Refills Prov: Abdulkadir Rowell M.D. 12/01/19 Divalproex Sodium* (DEPAKOTE*) 250 Mg Tablet. 500 MG PO Q12HR for 30 Days, #120 TAB Prov: Abdulkadir Rowell M.D. 12/01/19 Referrals: [facility],REFERRING (PCP) Abdulkadir Rowell M.D. December 01, 2019 01:52
--- NOTE | 2019-12-01 03:30 | NUR ---
ED Nurse Note: Pt resting in bed side lying, non-labored breathing. No signs of distress. Will continue to monitor
[2019-12-01] MEDS ORDERED: DEPAKOTE250 MG PO (04:08)
[2019-12-01] MEDS ORDERED: HALOPERIDOL5 MG ORAL (04:08)
[2019-12-01] MEDS ORDERED: BENZTROPINE ME0.5 MG PO (04:08)
[2019-12-01 04:15] VITALS: BP 147/96
== END 2019-12-01 04:15 | disposition home or self-care (01) ==
LOC: EMR 01:38
DX: R51 Headache (principal); I10 Essential (primary) hypertension; F41.9 Anxiety disorder, unspecified
CPT/HCPCS: 96361; 96374; 96375; J0780; J1200; J7030; Z7502; 99284

== ENCOUNTER 2020-02-05 02:50 | Emergency (ER) | payer MEDICAID ==
[~2020-02-05] VITALS: Ht 170.2 cm; Wt 86.2 kg
[2020-02-05 03:09] VITALS: BP 175/127
--- NOTE | 2020-02-05 03:17 | Emergency Room Report ---
History of Present Illness General Chief Complaint: Skin Rash/Abscess Source: Patient Present Illness HPI Patient presents with rash on both of his hands. This has been going on for least 3 days. They are blistered and are itchy. He denies pain. Denies fevers or upper respiratory symptoms. He has no rash on the rest of his body. He may have been exposed to some detergent a few days ago. The patient also has a history of bipolar disorder and is asking for refill of his Haldol Zyprexa and Cogentin. He denies suicidal or homicidal ideation at this time. The patient has a history of hypertension also. No fevers, chills, sore throat, chest pain, palpitations, nausea, vomiting, diarrhea, dysuria, abdominal pain, shortness of breath, joint pain, visual changes, dizziness, headache. 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 Nursing Documentation: PMH: Agreed; PSxH: Agreed Nursing Documentation-PMH Hx Hypertension: Yes History Of Psychiatric Problem: Yes - BIPOLAR Review of Systems All Other Systems: negative except mentioned in HPI Physical Exam Vital Signs Date Time Temp Pulse Resp B/P (MAP) Pulse Ox O2 Delivery O2 Flow Rate FiO2 02/05/20 02:58 98.4 90 20 175/127 (143) 99 Room Air Sp02 EP Interpretation: reviewed, normal General Appearance: well appearing, no apparent distress, GCS 15, non-toxic Head: normocephalic Eyes: bilateral eye normal inspection, bilateral eye PERRL, bilateral eye EOMI ENT: moist mucus membranes - No oral lesions Neck: full range of motion, supple Respiratory: normal inspection Cardiovascular #1: regular rate, rhythm Cardiovascular #2: 2+ radial (R), 2+ radial (L) Gastrointestinal: normal inspection Musculoskeletal: gait/station normal, normal range of motion Neurologic: alert, grossly normal Psychiatric: mood/affect normal - Somewhat flat, no suicidal/homicidal ideation , no delusions Skin: normal color, other - Vesicular rash bilateral hands both volar and dorsal surfaces without erythema. Feet without rash Medical Decision Making Diagnostic Impression: Primary Impression: Contact dermatitis Qualified Codes: L24.0 - Irritant contact dermatitis due to detergents Additional Impressions: Bipolar disorder Qualified Codes: F31.9 - Bipolar disorder, unspecified Hypertension Qualified Codes: I10 - Essential (primary) hypertension ER Course Patient presents with bilateral hand rashes. Differential includes contact dermatitis, voka-xigp-bmr-mouth disease, syphilis, allergic reaction, cellulitis amongst others. Physical exam is diagnostic along with history for contact dermatitis. No evidence of infection at this time. In addition the patient is asking for refill on prescriptions for bipolar disorder. The patient is not suicidal or homicidal. He is not delusional. There is somewhat of a flat affect. Refills are indicated. The patient is given a dose of Benadryl. Discussed treatment plan with patient. He understands the nature of problem with his hands. Patient stable for outpatient observation and treatment. Last Vital Signs Date Time Temp Pulse Resp B/P (MAP) Pulse Ox O2 Delivery O2 Flow Rate FiO2 02/05/20 03:35 98.4 88 20 149/100 100 Room Air Status: improved Disposition: HOME, SELF-CARE Condition: Improved Scripts Benztropine Mesylate* (BENZTROPINE MESYLATE*) 1 Mg Tablet 1 MG ORAL BID for 30 Days, #30 TAB Prov: Pardeep Bush MD 02/05/20 Divalproex Sodium* (DEPAKOTE*) 250 Mg Tablet.dr 250 MG PO Q12HR, #30 TAB Prov: Pardeep Bush MD 02/05/20 Haloperidol (Haloperidol) 5 Mg Tablet 5 MG ORAL DAILY, #15 TAB 0 Refills Prov: Pardeep Bush MD 02/05/20 Triamcinolone Acetonide (Triamcinolone Acetonide 0.025% Oint) 80 Gm Oint...g. 1 APPLIC TP BID, #60 GM Prov: Pardeep Bush MD 02/05/20 Referrals: [facility],REFERRING (PCP) Pardeep Bush MD Feb 05, 2020 03:17
[2020-02-05] MEDS ORDERED: DEPAKOTE250 MG PO ×2 (03:24)
[2020-02-05] MEDS ORDERED: TRIAMCINOLONE A80 G1 TP ×2 (03:24)
[2020-02-05] MEDS ORDERED: BENZTROPINE MESY1 MG ORAL (03:24)
[2020-02-05] MEDS ORDERED: HALDOL5 MG ORAL (03:24)
[2020-02-05 03:35] VITALS: BP 149/100
[2020-02-21] MEDS ORDERED: HALDOL5 MG ORAL ×2 (11:08)
== END 2020-02-05 03:35 | disposition home or self-care (01) ==
LOC: EMR 03:09
DX: L24.0 Irritant contact dermatitis due to detergents (principal); F31.9 Bipolar disorder, unspecified; I10 Essential (primary) hypertension
CPT/HCPCS: 99282

== ENCOUNTER 2020-02-21 09:55 | Emergency (ER) | payer MEDICAID ==
[~2020-02-21] VITALS: Ht 167.6 cm; Wt 86.2 kg
[~2020-02-21 09:55] MED LIST changes: +BENZTROPINE MESY1 MG ORAL; +TRIAMCINOLONE A80 G1 TP
[2020-02-21 09:57] VITALS: BP 153/102
--- NOTE | 2020-02-21 09:57 | NUR ---
ED Nurse Note: Patient MARTI from home c/o high blood pressure and palpitations that started this AM. Per patient, he currently does not have palpitations, but has 9/10 aching headache, which he has when his BP is elevated. Current BP is 153/102, HR 78. O2 sat 100% Addendum: 02/21/20 at 1005 by NFIELDS ED Nurse Note: Patient AxO x 4, no s/s of aacute distress. Bed in lowest position, call light within reach. 20 IV started in right AC, blood collected and sent to lab.
--- NOTE | 2020-02-21 10:08 | NUR ---
ED Nurse Note: Dr. Hsu at bedside
--- NOTE | 2020-02-21 10:12 | NUR ---
ED Nurse Note: Urine sample collected, sent to lab.
[2020-02-21] MEDS ORDERED: Metoclopramide 10mg/2ml Inj IVP ONE (10:15)
[2020-02-21] MEDS ORDERED: Acetaminophen 500mg (ES) tab ORAL ONE (10:15)
--- NOTE | 2020-02-21 10:20 | NUR ---
ED Nurse Note: Patient refusing CT scan and Xray, stating he recently had CT scans. Dr. San notified and discussed risks and benefits with patient. Patient confirmed he still would not like to have CT scan and Xray.
--- NOTE | 2020-02-21 10:20 | Emergency Room Report ---
History of Present Illness General Chief Complaint: Palpitations Source: Patient, EMS Present Illness HPI 50-year-old male presents for evaluation. Brought in by EMS for palpitations. Started around 7 AM and lasted for 2 hours. Sudden onset. Patient states symptoms resolved upon arrival. States he feels okay at this time. Denies chest pain or shortness of breath. States he does have a headache. Dull, 6 out of 10, nonradiating. BP in triage high. History of hypertension. Takes amlodipine. took it last night. history of psych. Denies feeling anxious. Denies drug use. No other aggravating relieving factors. Denies any other associated symptoms Allergies: Coded Allergies: No Known Allergies (Unverified , 03/27/14) COVID-19 Screening Contact w/high risk pt: No Recent Travel to affected area: No Experienced COVID-19 symptoms?: No COVID-19 Testing performed INSPECTOR BOILER: No Patient History Past Medical History: HTN, psych hx Past Surgical History: none Pertinent Family History: none Social History: Denies: smoking, alcohol use, drug use Immunizations: UTD Reviewed Nursing Documentation: PMH: Agreed; PSxH: Agreed Nursing Documentation-PMH Hx Hypertension: Yes History Of Psychiatric Problem: Yes - bipolar disorder Review of Systems All Other Systems: negative except mentioned in HPI Physical Exam Vital Signs Date Time Temp Pulse Resp B/P (MAP) Pulse Ox O2 Delivery O2 Flow Rate FiO2 02/21/20 09:49 98.6 92 18 167/115 (132) 97 Room Air Sp02 EP Interpretation: reviewed, normal General Appearance: no apparent distress, alert, GCS 15, non-toxic Head: normocephalic, atraumatic Eyes: bilateral eye normal inspection, bilateral eye PERRL ENT: hearing grossly normal, normal pharynx, no angioedema, normal voice Neck: full range of motion, supple/symm/no masses Respiratory: chest non-tender, lungs clear, normal breath sounds, speaking full sentences Cardiovascular #1: regular rate, rhythm, no edema Cardiovascular #2: 2+ carotid (R), 2+ carotid (L), 2+ radial (R), 2+ radial (L) , 2+ dorsalis pedis (R), 2+ dorsalis pedis (L) Gastrointestinal: normal bowel sounds, non tender, soft, non-distended, no guarding, no rebound Rectal: deferred Genitourinary: normal inspection, no CVA tenderness Musculoskeletal: back normal, normal range of motion, gait/station normal, non- tender Neurologic: alert, motor strength/tone normal, oriented x3, sensory intact, responsive, speech normal Psychiatric: judgement/insight normal, memory normal, mood/affect normal, no suicidal/homicidal ideation Reflexes: 3+ bicep (R), 3+ bicep (L), 3+ tricep (R), 3+ tricep (L), 3+ knee (R) , 3+ knee (L) Lymphatic: no adenopathy Medical Decision Making Diagnostic Impression: Primary Impression: Palpitations Additional Impression: Hypertension Qualified Codes: I10 - Essential (primary) hypertension ER Course Hospital Course 50-year-old M presents ED complaining of palpitations, c/o headache. Differential diagnoses include: afib, Vtach, SVT, anxiety, dehydration Clinical course Patient placed on stretcher. After initial history and physical I ordered labs , EKG, chest x-ray, CT, meds, IVFs labs reviewed- all electrolytes normal, troponins negative, no leukocytosis, hemoglobin/hematocrit stable EKG - NSR, no acute ischeic changes interpreted by me Patient declined CT and chest x-ray stating he has had previous studies done. BP initially high. Treated with hydralazine and improved. I discussed findings with patient. No signs of arrhythmia or tachycardia during ED course. Observed on manager cardiac cath. Patient does have history of anxiety and psych. Symptoms could be attributed to that. Patient is requesting refill of his Haldol. Safe for discharge for close outpatient follow-up. States he has a PMD psychiatrist I. I feel this is a highly complex case requiring extensive working including EKG/Rhythm strip, Xray/CT/US, Blood/urine lab work, repeat exams while in ED, and administration of strong opiates/narcotics for pain control, admission to hospital or close patient follow up. Diagnosis - palpitations, hypertension Stable and discharged to home with Rx Haldol. Instructed to followup with PMD. Return to ED if symptoms recur or worsen Labs Test 02/21/20 10:00 02/21/20 10:15 White Blood Count 8.5 K/UL (4.8-10.8) Red Blood Count 5.35 M/UL (4.70-6.10) Hemoglobin 16.4 G/DL (14.2-18.0) Hematocrit 48.3 % (42.0-52.0) Mean Corpuscular Volume 90 FL (80-99) Mean Corpuscular Hemoglobin 30.6 PG (27.0-31.0) Mean Corpuscular Hemoglobin Concent 33.9 G/DL (32.0-36.0) Red Cell Distribution Width 11.3 % (11.6-14.8) Platelet Count 193 K/UL (150-450) Mean Platelet Volume 7.1 FL (6.5-10.1) Neutrophils (%) (Auto) 59.1 % (45.0-75.0) Lymphocytes (%) (Auto) 27.9 % (20.0-45.0) Monocytes (%) (Auto) 6.4 % (1.0-10.0) Eosinophils (%) (Auto) 5.2 % (0.0-3.0) Basophils (%) (Auto) 1.3 % (0.0-2.0) Sodium Level 134 MMOL/L (136-145) Potassium Level 3.8 MMOL/L (3.5-5.1) Chloride Level 102 MMOL/L (98-107) Carbon Dioxide Level 21 MMOL/L (21-32) Anion Gap 11 mmol/L (5-15) Blood Urea Nitrogen 6 mg/dL (7-18) Creatinine 0.6 MG/DL (0.55-1.30) Estimat Glomerular Filtration Rate > 60 mL/min (>60) Glucose Level 117 MG/DL (74-106) Calcium Level 9.5 MG/DL (8.5-10.1) Total Bilirubin 0.4 MG/DL (0.2-1.0) Aspartate Amino Transf (AST/SGOT) 27 U/L (15-37) Alanine Aminotransferase (ALT/SGPT) 48 U/L (12-78) Alkaline Phosphatase 57 U/L (46-116) Troponin I 0.000 ng/mL (0.000-0.056) Total Protein 7.7 G/DL (6.4-8.2) Albumin 4.2 G/DL (3.4-5.0) Globulin 3.5 g/dL Albumin/Globulin Ratio 1.2 (1.0-2.7) Urine Opiates Screen Negative (NEGATIVE) Urine Barbiturates Screen Negative (NEGATIVE) Phencyclidine (PCP) Screen Negative (NEGATIVE) Urine Amphetamines Screen Negative (NEGATIVE) Urine Benzodiazepines Screen Negative (NEGATIVE) Urine Cocaine Screen Negative (NEGATIVE) Urine Marijuana (THC) Screen Negative (NEGATIVE) EKG Diagnostic Results Rate: normal Rhythm: NSR ST Segments: no acute changes ASA given to the pt in ED: No Rhythm Strip Diag. Results EP Interpretation: yes Rhythm: NSR, no PVC's, no ectopy Last Vital Signs Date Time Temp Pulse Resp B/P (MAP) Pulse Ox O2 Delivery O2 Flow Rate FiO2 02/21/20 09:57 98.6 78 18 153/102 100 Room Air Status: improved Disposition: HOME, SELF-CARE Condition: Stable Scripts Haloperidol (Haloperidol) 5 Mg Tablet 5 MG ORAL DAILY, #15 TAB 0 Refills Prov: Max Hsu MD 02/21/20 Referrals: [facility],REFERRING (PCP) Max Hsu MD Feb 21, 2020 10:20
[2020-02-21 10:24] LABS: BASOPHILS % (AUTO) 1.3 % (0.0-2.0); EOSINOPHILS % (AUTO) 5.2 % (0.0-3.0); HEMATOCRIT 48.3 % (42.0-52.0); HEMOGLOBIN 16.4 G/DL (14.2-18.0); LYMPHOCYTES % (AUTO) 27.9 % (20.0-45.0); MEAN CORPUSCULAR VOLUME 90 FL (80-99); MONOCYTES % (AUTO) 6.4 % (1.0-10.0); NEUTROPHILS % (AUTO) 59.1 % (45.0-75.0); PLATELET COUNT 193 K/UL (150-450); RED BLOOD COUNT 5.35 M/UL (4.70-6.10); RED CELL DISTRIBUTION WIDTH 11.3 % (11.6-14.8); WHITE BLOOD COUNT 8.5 K/UL (4.8-10.8)
[2020-02-21 10:34] LABS: ANION GAP 11 mmol/L (5-15); BLOOD UREA NITROGEN 6 mg/dL (7-18); CALCIUM 9.5 MG/DL (8.5-10.1); CARBON DIOXIDE 21 MMOL/L (21-32); CHLORIDE 102 MMOL/L (98-107); CREATININE 0.6 MG/DL (0.55-1.30); POTASSIUM 3.8 MMOL/L (3.5-5.1); SODIUM 134 MMOL/L (136-145)
[2020-02-21 10:39] LABS: ALANINE AMINOTRANSFERASE 48 U/L (12-78); ALBUMIN 4.2 G/DL (3.4-5.0); ALBUMIN/GLOBULIN RATIO 1.2 (1.0-2.7); ALKALINE PHOSPHATASE 57 U/L (46-116); ASPARTATE AMINO TRANSFERASE 27 U/L (15-37); BILIRUBIN,TOTAL 0.4 MG/DL (0.2-1.0)
[2020-02-21] MEDS ORDERED: HALDOL5 MG ORAL (11:08)
[2020-02-21 11:15] VITALS: BP 122/75
--- NOTE | 2020-02-21 11:15 | NUR ---
ER DISCHARGE NOTE: Patient is cleared to be discharged per Dr. Hsu, pt is aox4, on room air, with stable vital signs. pt was given dc and prescription instructions, pt was able to verbalize understanding, pt id band and iv site removed without complications. pt is able to ambulate with steady gait. pt took all belongings.
== END 2020-02-21 11:15 | disposition home or self-care (01) ==
LOC: EDBD 09:55 → EMR 10:06
DX: R00.2 Palpitations (principal); I10 Essential (primary) hypertension; R51 Headache
CPT/HCPCS: 36415; 80053; 80307; 84484; 85025; 93005; 96361; 96374; 96375; J0360; J2765; J7030; Z7502; 99284

== ENCOUNTER 2020-02-24 03:55 | Emergency (ER) | payer MEDICAID ==
[~2020-02-24] VITALS: Ht 167.6 cm; Wt 86.2 kg
[2020-02-24 04:02] VITALS: BP 150/96
[2020-02-24] MEDS ORDERED: Ketorolac 30mg Inj IM ONE (04:30)
[2020-02-24] MEDS ORDERED: CLOBETASOL PROP15 GM TP (04:33)
[2020-02-24 04:38] VITALS: BP 150/96
--- NOTE | 2020-02-24 05:02 | Emergency Room Report ---
History of Present Illness General Chief Complaint: Headache Source: Patient Present Illness HPI 50-year-old male presents ED for evaluation of rash. Notes rash to his hands. States he was seen here earlier in the month for similar rash and was prescribed medication. States it is not helping. States it is itchy and notes cracked skin. Denies pain. Denies any known food or drug allergies. Patient also complaining of headache for the last 3 days. History of chronic headaches. States he took Tylenol with some relief. Throbbing, 8 out of 10, nonradiating. Denies any photophobia or blurry vision. Denies any neck stiffness. Denies nausea or vomiting. No other aggravating relieving factors. Denies any other associated symptoms Allergies: Coded Allergies: No Known Allergies (Unverified , 03/27/14) COVID-19 Screening Contact w/high risk pt: No Recent Travel to affected area: No Experienced COVID-19 symptoms?: No COVID-19 Testing performed MONEY ROOM TELLER: No Patient History Past Medical History: psych hx Past Surgical History: none Pertinent Family History: none Social History: Denies: smoking, alcohol use, drug use Immunizations: UTD Reviewed Nursing Documentation: PMH: Agreed; PSxH: Agreed Nursing Documentation-PMH Past Medical History: No History, Except For Hx Hypertension: Yes History Of Psychiatric Problem: Yes - bipolar Review of Systems All Other Systems: negative except mentioned in HPI Physical Exam Vital Signs Date Time Temp Pulse Resp B/P (MAP) Pulse Ox O2 Delivery O2 Flow Rate FiO2 02/24/20 04:02 98.4 109 18 150/96 (114) 98 Room Air Sp02 EP Interpretation: reviewed, normal General Appearance: no apparent distress, alert, GCS 15, non-toxic Head: normocephalic, atraumatic Eyes: bilateral eye normal inspection, bilateral eye PERRL ENT: hearing grossly normal, normal pharynx, no angioedema, normal voice Neck: full range of motion, supple, no meningismus, supple/symm/no masses Respiratory: chest non-tender, lungs clear, normal breath sounds, speaking full sentences Cardiovascular #1: regular rate, rhythm, no edema Cardiovascular #2: 2+ carotid (R), 2+ carotid (L), 2+ radial (R), 2+ radial (L) , 2+ dorsalis pedis (R), 2+ dorsalis pedis (L) Gastrointestinal: normal bowel sounds, non tender, soft, non-distended, no guarding, no rebound Rectal: deferred Genitourinary: normal inspection, no CVA tenderness Musculoskeletal: back normal, normal range of motion, gait/station normal, non- tender Neurologic: alert, motor strength/tone normal, oriented x3, sensory intact, responsive, speech normal Psychiatric: judgement/insight normal, memory normal, mood/affect normal, no suicidal/homicidal ideation Reflexes: 3+ bicep (R), 3+ bicep (L), 3+ tricep (R), 3+ tricep (L), 3+ knee (R) , 3+ knee (L) Skin: other - scaly rash noted to palms of hands. nonerythematous. Lymphatic: no adenopathy Medical Decision Making Diagnostic Impression: Primary Impression: Headache Qualified Codes: R51 - Headache Additional Impression: Contact dermatitis Qualified Codes: L25.9 - Unspecified contact dermatitis, unspecified cause ER Course Hospital Course 50-year-old female presents to ED with rash to hands. c/o headache. Differential diagnoses include: Cellulitis, dermatitis, insect bite, abscess Clinical course Patient placed on stretcher. After initial history, physical exam reveals a male in no acute distress. On exam there scaly rash noted to the palms of both hands. Some cracked skin noted. Nonerythematous. There is no nuchal rigidity. No focal deficits. Headache is chronic. Given Toradol and Reglan in ED. Discussed findings with patient. I reviewed EMR. Patient was last prescribed triamcinolone without significant relief.. Will try clobetasol cream. I explained that if symptoms do not improve he should see dermatology as outpatient. Safe for discharge with close outpatient follow-up Diagnosis - headache, contact dermatitis stable and discharged to home with prescription for clobetasol. Instructed to followup with PMD/dermatology. Instructed return to ED if symptoms recur or worsen Last Vital Signs Date Time Temp Pulse Resp B/P (MAP) Pulse Ox O2 Delivery O2 Flow Rate FiO2 02/24/20 04:38 98.4 79 18 150/96 98 Room Air Status: improved Disposition: HOME, SELF-CARE Condition: Stable Scripts Clobetasol Propionate (CLOBETASOL PROPIONATE) 15 Gm Cream..g. 15 GM TP BID, #15 GM Prov: [place]ota,Max MD 02/24/20 Referrals: [facility],REFERRING (PCP) Patient Instructions: Contact Dermatitis, [id number] Max Hsu MD Feb 24, 2020 05:02
[2020-02-25] MEDS ORDERED: TRAMADOL HCL50 MG ORAL (23:38)
[2020-02-25] MEDS ORDERED: ATENOLOL50 MG ORAL (23:38)
== END 2020-02-24 04:39 | disposition home or self-care (01) ==
LOC: EMR 04:15
DX: L25.9 Unspecified contact dermatitis, unspecified cause (principal); R51 Headache; I10 Essential (primary) hypertension; F31.9 Bipolar disorder, unspecified
CPT/HCPCS: 96372; J1885; Z7502; 99283

== ENCOUNTER 2020-02-25 23:11 | Emergency (ER) | payer MEDICAID ==
[~2020-02-25] VITALS: Ht 167.6 cm; Wt 86.2 kg
[~2020-02-25 23:11] MED LIST changes: +CLOBETASOL PROP15 GM TP
--- NOTE | 2020-02-25 23:30 | NUR ---
ED Nurse Note: Pt ambulated to ED from home c/o 05/08 headche pain that has lasted for 3 days without relief, worsening today. Pt also reports high BP at home, reports taking his BP medication, pt was seen yesterday for the same reason. Pt is A&OX4, Pt placed on surveillance monitor. ERMD at bedside
[2020-02-25 23:36] VITALS: BP 156/110
[2020-02-25] MEDS ORDERED: TRAMADOL HCL50 MG ORAL (23:38)
[2020-02-25] MEDS ORDERED: ATENOLOL50 MG ORAL (23:38)
--- NOTE | 2020-02-25 23:39 | Emergency Room Report ---
History of Present Illness General Chief Complaint: Headache Source: Patient Present Illness HPI This is a 50-year-old male with a history of hypertension. He also history of chronic headache. He had several CT scan done already and they have been negative. He said he get headache every few months. This 1 is been ongoing for the last 3 to 4 days. He was here several times for headache already. He also said his blood pressure is elevated. He take Norvasc 10 mg a day. Denies any fever chills. Headache is throbbing in nature. Usually frontal in area. No focal deficit. No nausea no vomiting. No chest pain. No shortness of breath. Nothing made it better. Nothing made it worse. Tylenol is not helping. Allergies: Coded Allergies: No Known Allergies (Unverified , 03/27/14) COVID-19 Screening Contact w/high risk pt: No Recent Travel to affected area: No Experienced COVID-19 symptoms?: No COVID-19 Testing performed LOWER SCHOOL SPANISH TEACHER: No Patient History Past Medical History: see triage record, old chart reviewed, HTN Past Surgical History: none Pertinent Family History: none Social History: Denies: smoking Immunizations: other Reviewed Nursing Documentation: PMH: Agreed; PSxH: Agreed Nursing Documentation-PMH Hx Hypertension: Yes History Of Psychiatric Problem: Yes - BIPOLAR Review of Systems Eye: Denies: eye pain, blurred vision ENT: Denies: ear pain, nose congestion, throat swelling Respiratory: Denies: cough, shortness of breath Cardiovascular: Denies: chest pain, palpitations Gastrointestinal: Denies: abdominal pain, diarrhea, nausea, vomiting Musculoskeletal: Denies: back pain, joint pain Skin: Denies: rash Neurological: Reports: headache; Denies: numbness Endocrine: Denies: increased thirst, increased urine Hematologic/Lymphatic: Denies: easy bruising All Other Systems: negative except mentioned in HPI Physical Exam Vital Signs Date Time Temp Pulse Resp B/P (MAP) Pulse Ox O2 Delivery O2 Flow Rate FiO2 02/25/20 23:18 98.2 94 20 156/110 (125) 99 Room Air Vitals with hypertension Sp02 EP Interpretation: reviewed, normal General Appearance: well appearing, no apparent distress, alert, obese Head: normocephalic, atraumatic Eyes: bilateral eye PERRL, bilateral eye EOMI ENT: hearing grossly normal, normal pharynx Neck: full range of motion, supple, no meningismus Respiratory: chest non-tender, lungs clear, normal breath sounds Cardiovascular #1: regular rate, rhythm, no murmur Gastrointestinal: normal bowel sounds, non tender, no mass, no organomegaly, no bruit, non-distended Musculoskeletal: back normal, normal range of motion, gait/station normal Psychiatric: mood/affect normal Medical Decision Making Diagnostic Impression: Primary Impression: Headache Qualified Codes: R51 - Headache Additional Impression: Hypertension Qualified Codes: I10 - Essential (primary) hypertension ER Course This patient presents with headache. This is chronic in nature. Could be secondary to his high blood pressure. He had recent blood work done a few days ago. No evidence of endorgan damage. Will add another antihypertensive medication. Last Vital Signs Date Time Temp Pulse Resp B/P (MAP) Pulse Ox O2 Delivery O2 Flow Rate FiO2 02/25/20 23:18 98.2 94 20 156/110 (125) 99 Room Air Status: improved Disposition: HOME, SELF-CARE Condition: Stable Scripts Tramadol Hcl* (ULTRAM*) 50 Mg Tablet 50 MG ORAL BID PRN for For Pain, #20 TAB 0 Refills Prov: Rai Barros MD 02/25/20 Atenolol* (TENORMIN*) 50 Mg Tablet 50 MG ORAL DAILY, #90 TAB Prov: Rai Barros MD 02/25/20 Referrals: NON PHYSICIAN (PCP) Patient Instructions: General Headache Without Cause Additional Instructions: Follow-up with your doctor in 7 days. Keep a record of your blood pressure readings for your doctor. Continue with your amlodipine. I will add atenolol to your regimen. Take both for hypertension. Return if symptoms worsen. Rai Barros MD Feb 25, 2020 23:39
[2020-02-25] MEDS ORDERED: Ketorolac 60mg Inj IM ONE (23:45)
[2020-02-26] VITALS: BP 148/105
--- NOTE | 2020-02-26 | NUR ---
ER DISCHARGE NOTE: Patient is cleared to be discharged per ERMD, pt is aox4, on room air, with stable vital signs. pt was given dc and prescription instructions, pt was able to verbalize understanding, pt id band removed. pt is able to ambulate with steady gait. pt took all belongings.
--- NOTE | 2020-02-26 | NUR ---
ED Nurse Note: ERMD ok to discharge pt with continued 10/10 pain, pt given pain medication and discharged
== END 2020-02-26 | disposition home or self-care (01) ==
LOC: EMR 23:20
DX: R51 Headache (principal); I10 Essential (primary) hypertension; F17.200 Nicotine dependence, unspecified, uncomplicated
CPT/HCPCS: 96372; Z7502; 99283

== ENCOUNTER 2020-03-08 05:20 | Emergency (ER) | payer MEDICAID ==
[~2020-03-08] VITALS: Ht 167.6 cm; Wt 86.2 kg
[~2020-03-08 05:20] MED LIST changes: +ATENOLOL50 MG ORAL; +TRAMADOL HCL50 MG ORAL
[2020-03-08 05:43] VITALS: BP 164/95
--- NOTE | 2020-03-08 05:46 | Emergency Room Report ---
History of Present Illness General Chief Complaint: Hypertension Source: Patient, Medical Record Present Illness HPI This is a 50-year-old male with history of high blood pressure. He also history of chronic headache. He has been here numerous times for the same thing. He said he woke up this morning with a headache. This is chronic in nature. Different today is that he said he felt his left arm and left leg is slightly compared to the right side. This occurred about 45 minutes prior to arrival. No fever chills but no slurred speech. No other focal deficit. He drove here without any difficulty. Has not take anything for his headache. Said that he is compliant with his blood pressure medication. Allergies: Coded Allergies: No Known Allergies (Unverified , 03/27/14) COVID-19 Screening Contact w/high risk pt: No Recent Travel to affected area: No Experienced COVID-19 symptoms?: No COVID-19 Testing performed MAINTENANCE MECHANIC: No Patient History Past Medical History: see triage record, old chart reviewed, HTN Past Surgical History: none Pertinent Family History: none Social History: Denies: smoking Immunizations: other Reviewed Nursing Documentation: PMH: Agreed; PSxH: Agreed Nursing Documentation-PMH Hx Hypertension: Yes Review of Systems Eye: Denies: eye pain, blurred vision ENT: Denies: ear pain, nose congestion, throat swelling Respiratory: Denies: cough, shortness of breath Cardiovascular: Denies: chest pain, palpitations Gastrointestinal: Denies: abdominal pain, diarrhea, nausea, vomiting Musculoskeletal: Denies: back pain, joint pain Skin: Denies: rash Neurological: Reports: headache; Denies: numbness Endocrine: Denies: increased thirst, increased urine Hematologic/Lymphatic: Denies: easy bruising All Other Systems: negative except mentioned in HPI Physical Exam Vital Signs Date Time Temp Pulse Resp B/P (MAP) Pulse Ox O2 Delivery O2 Flow Rate FiO2 03/08/20 05:24 97.9 111 16 164/95 (118) 99 Room Air Vitals with high blood pressure Sp02 EP Interpretation: reviewed, normal General Appearance: well appearing, no apparent distress, alert Head: normocephalic, atraumatic Eyes: bilateral eye PERRL, bilateral eye EOMI ENT: hearing grossly normal, normal pharynx Neck: full range of motion, supple, no meningismus Respiratory: chest non-tender, lungs clear, normal breath sounds Cardiovascular #1: regular rate, rhythm, no murmur Gastrointestinal: normal bowel sounds, non tender, no mass, no organomegaly, no bruit, non-distended Musculoskeletal: back normal, normal range of motion, gait/station normal Psychiatric: mood/affect normal Medical Decision Making Diagnostic Impression: Primary Impression: Hypertension Qualified Codes: I10 - Essential (primary) hypertension Additional Impression: Headache Qualified Codes: R51 - Headache ER Course Patient presents with headache and high blood pressure. I suspect there is an anxiety component to this. Here his heart rate is improved and his blood pressure improved. No evidence of any focal deficit. Will get CT scan. If negative, will discharge home. I see no evidence of CVA or bleed. CT/MRI/US Diagnostic Results CT/MRI/US Diagnostic Results : Imaging Test Ordered: CT head Impression Read by radiologist. Negative. Last Vital Signs Date Time Temp Pulse Resp B/P (MAP) Pulse Ox O2 Delivery O2 Flow Rate FiO2 03/08/20 05:24 97.9 111 16 164/95 (118) 99 Room Air Status: improved Disposition: HOME, SELF-CARE Condition: Stable Additional Instructions: Your blood pressure medication. Follow-up with your primary care doctor in 7 days. Return if worse. Rai Barros MD Mar 08, 2020 05:46
--- NOTE | 2020-03-08 05:57 | Diagnostic Imaging Report ---
EXAM: CT Head Without Intravenous Contrast CLINICAL HISTORY: PAIN TECHNIQUE: Axial computed tomography images of the head/brain without intravenous contrast. CTDI is 53 mGy and DLP is 965 mGy-cm. One or more of the following dose reduction techniques were used: automated exposure control, adjustment of the mA and/or kV according to patient size, use of iterative reconstruction technique. COMPARISON: No relevant prior studies available. FINDINGS: Brain: Unremarkable. No hemorrhage. No significant white matter disease. No edema. Ventricles: Unremarkable. No ventriculomegaly. Bones/joints: Unremarkable. No acute fracture. Soft tissues: Unremarkable. Sinuses: Unremarkable as visualized. No acute sinusitis. Mastoid air cells: Unremarkable as visualized. No mastoid effusion. IMPRESSION: No evidence of acute intracranial process. Paranasal sinuses and mastoids are clear.
[2020-03-08 06:07] VITALS: BP 141/90
== END 2020-03-08 06:04 | disposition home or self-care (01) ==
LOC: EMR 05:46
DX: I10 Essential (primary) hypertension (principal); R51 Headache
CPT/HCPCS: 70450; Z7502; 99284

== ENCOUNTER 2020-03-30 22:19 | Emergency (ER) | payer MEDICAID ==
[~2020-03-30] VITALS: Ht 167.6 cm; Wt 86.2 kg
[~2020-03-30 22:19] MED LIST changes: +ATIVAN1 MG ORAL
[2020-03-30 22:24] VITALS: BP 157/101
--- NOTE | 2020-03-30 22:24 | NUR ---
ED Nurse Note: Walk-in patient with complaints of headache and hypertension. Patient reports taking medication for blood pressure around 1800 today. Patient's BP mildly elevated and documented.
--- NOTE | 2020-03-30 22:45 | NUR ---
ED Nurse Note: Iv started at right AC, 20G, patent with blood return. Patient tolerated IV medication well. IV fluid N/s Running, will continue to monitor.
--- NOTE | 2020-03-30 22:50 | Emergency Room Report ---
History of Present Illness General Chief Complaint: Headache Source: Patient Present Illness HPI 50-year-old male with history of bipolar disorder and multiple psychiatric medications, history of chronic headaches for which she has been here in the emergency department many times and undergone CT imaging many times, here again for headache. Allergies: Coded Allergies: No Known Allergies (Unverified , 03/27/14) COVID-19 Screening Contact w/high risk pt: No Recent Travel to affected area: No Experienced COVID-19 symptoms?: No COVID-19 Testing performed SURGICAL SALES REPRESENTATIVE: No Nursing Documentation-PMH Hx Hypertension: Yes Physical Exam Vital Signs Date Time Temp Pulse Resp B/P (MAP) Pulse Ox O2 Delivery O2 Flow Rate FiO2 03/30/20 22:24 98.6 115 19 157/101 (119) 96 Room Air Medical Decision Making Diagnostic Impression: Primary Impression: Headache ER Course ddx: Tension headache, migraine, cluster, mass-tumor, meningitis, sah, temporal arteritis, glaucoma 42-year-old male with history of chronic headaches here multiple times in the past for headache issues here again with a headache. Patient says that his headache is been ongoing for several days to weeks. Located diffusely, there was no thunderclap nature, no vision changes, no eye pain. Low likelihood of acute angle-closure glaucoma, temporal arteritis, meningitis, subarachnoid hemorrhage, or other life-threatening cause of headache. Patient was given Compazine and Benadryl and IV fluids with complete resolution of his symptoms. He had a completely normal neurologic examination and said that he was wishing to leave. He was given prescription for Tylenol and information to follow-up with a primary care physician for his chronic headache issues. Discharged in stable condition. Last Vital Signs Date Time Temp Pulse Resp B/P (MAP) Pulse Ox O2 Delivery O2 Flow Rate FiO2 03/30/20 22:24 98.6 115 19 157/101 (119) 96 Room Air Scripts Acetaminophen* (TYLENOL EXTRA STRENGTH*) 500 Mg Tablet 500 MG ORAL Q8H PRN for Prn Headache/Temp > 101, #30 TAB 0 Refills Prov: Daniel Clayton M.D. 03/30/20 Referrals: [facility],REFERRING (PCP) Daniel Clayton M.D. Mar 30, 2020 22:50
[2020-03-30] MEDS ORDERED: DiphenhydrAMINE 50mg/ml Inj IVP ONE (23:00)
[2020-03-30] MEDS ORDERED: TYLENOL EXTRA500 MG ORAL (23:36)
--- NOTE | 2020-03-30 23:42 | NUR ---
ER DISCHARGE NOTE: Patient is cleared to be discharged per ERMD, pt is aox4, on room air, with stable vital signs. pt was given dc and prescription instructions along with instructions to find a primary doctor to provide usp care, pt was able to verbalize understanding, pt id band and iv site removed without complications. pt is able to ambulate with steady gait. pt took all belongings.
[2020-03-30 23:45] VITALS: BP 138/89
--- NOTE | 2020-03-31 00:19 | Emergency Room Report ---
History of Present Illness General Chief Complaint: Headache Source: Patient Present Illness HPI See previous note. Patient here for headache. Took 800 mg ibuprofen earlier today. Gradual in onset, ongoing for several days. No thunderclap in nature or sudden onset in nature. No focal numbness or weakness. No vision changes. No eye pain. No extraocular movement pain. Allergies: Coded Allergies: No Known Allergies (Unverified , 03/27/14) COVID-19 Screening Contact w/high risk pt: No Recent Travel to affected area: No Experienced COVID-19 symptoms?: No COVID-19 Testing performed COTTON BALL BAGGER: No Nursing Documentation-PMH Hx Hypertension: Yes Physical Exam Vital Signs Date Time Temp Pulse Resp B/P (MAP) Pulse Ox O2 Delivery O2 Flow Rate FiO2 03/30/20 22:24 98.6 115 19 157/101 (119) 96 Room Air Sp02 EP Interpretation: reviewed, normal General Appearance: no apparent distress, alert, GCS 15, non-toxic Head: normocephalic, atraumatic Eyes: bilateral eye normal inspection, bilateral eye PERRL ENT: hearing grossly normal, normal pharynx, no angioedema, normal voice Neck: full range of motion, supple/symm/no masses Respiratory: chest non-tender, lungs clear, normal breath sounds, speaking full sentences Cardiovascular #1: regular rate, rhythm, no edema Cardiovascular #2: 2+ carotid (R), 2+ carotid (L), 2+ radial (R), 2+ radial (L) , 2+ dorsalis pedis (R), 2+ dorsalis pedis (L) Gastrointestinal: normal bowel sounds, non tender, soft, non-distended, no guarding, no rebound Rectal: deferred Genitourinary: normal inspection, no CVA tenderness Musculoskeletal: back normal, normal range of motion, calf tenderness, gait/ station normal, non-tender Neurologic: alert, motor strength/tone normal, oriented x3, sensory intact, responsive, speech normal Psychiatric: judgement/insight normal, memory normal, mood/affect normal, no suicidal/homicidal ideation Lymphatic: no adenopathy Medical Decision Making Diagnostic Impression: Primary Impression: Headache Last Vital Signs Date Time Temp Pulse Resp B/P (MAP) Pulse Ox O2 Delivery O2 Flow Rate FiO2 03/30/20 23:45 98.6 82 18 138/89 99 Room Air Disposition: HOME, SELF-CARE Condition: Stable Scripts Acetaminophen* (TYLENOL EXTRA STRENGTH*) 500 Mg Tablet 500 MG ORAL Q8H PRN for Prn Headache/Temp > 101, #30 TAB 0 Refills Prov: Daniel Clayton M.D. 03/30/20 Referrals: [facility],REFERRING (PCP) [facility] Markus Amezcua [facility]. [facility] Patient Instructions: Tension Headache Daniel Clayton M.D. Mar 31, 2020 00:19
== END 2020-03-30 23:42 | disposition home or self-care (01) ==
LOC: EMR 22:40
DX: R51 Headache (principal); I10 Essential (primary) hypertension
CPT/HCPCS: 96361; 96374; 96375; J0780; J1200; J7030; Z7502; 99284

== ENCOUNTER 2020-04-05 23:25 | Emergency (ER) | payer MEDICAID ==
[~2020-04-05] VITALS: Ht 172.7 cm; Wt 68.0 kg
[~2020-04-05 23:25] MED LIST changes: +IBUPROFEN600 M1 ORAL; +POTASSIUM CHLO20 ME1 ORAL; +TYLENOL EXTRA500 MG ORAL
--- NOTE | 2020-04-05 23:40 | NUR ---
ED Nurse Note: Patient walked into the ED with c/o feelings of high BP and irregular HR. Triage BP is 135/98, HR 100. Patient stated he is anxious. Patient denies chest pain, , SOB, trauma and n/v. Patient is AAOX4 and ambulatory. Patient always comes to the ED with same complaints. Placed on monitor bed
--- NOTE | 2020-04-05 23:45 | NUR ---
ED Nurse Note: ERMD at bedside
[2020-04-05 23:52] VITALS: BP 137/90
--- NOTE | 2020-04-05 23:59 | Emergency Room Report ---
History of Present Illness General Chief Complaint: Palpitations Source: Patient, Medical Record Present Illness HPI This a 50-year-old male with history of high blood pressure and bipolar. He presents with chief complaint of palpitation. He said his heart rate at home was 114. He he been here numerous times for headache high blood pressure and palpitation. Denies any chest pain. Still having headache. This is unchanged from before. He has numerous CT head already. He said he is taking his medication. He only told me that he is taking amlodipine but he should also be on atenolol. Denies any fever chills but denies any nausea vomiting. He was told that he has anxiety. He is not currently taking anything for it other than Depakote. No suicidal thoughts homicidal thought. Allergies: Coded Allergies: No Known Allergies (Unverified , 03/27/14) COVID-19 Screening Contact w/high risk pt: No Recent Travel to affected area: No Experienced COVID-19 symptoms?: No COVID-19 Testing performed LOAN CLERK: No Patient History Past Medical History: see triage record, old chart reviewed, HTN, psych hx Past Surgical History: none Pertinent Family History: none Social History: Denies: smoking Immunizations: other Reviewed Nursing Documentation: PMH: Agreed; PSxH: Agreed Nursing Documentation-PMH Hx Hypertension: Yes Review of Systems Eye: Denies: eye pain, blurred vision ENT: Denies: ear pain, nose congestion, throat swelling Respiratory: Denies: cough, shortness of breath Cardiovascular: Reports: palpitations; Denies: chest pain Gastrointestinal: Denies: abdominal pain, diarrhea, nausea, vomiting Musculoskeletal: Denies: back pain, joint pain Skin: Denies: rash Neurological: Reports: headache; Denies: numbness Endocrine: Denies: increased thirst, increased urine Hematologic/Lymphatic: Denies: easy bruising All Other Systems: negative except mentioned in HPI Physical Exam Vital Signs Date Time Temp Pulse Resp B/P (MAP) Pulse Ox O2 Delivery O2 Flow Rate FiO2 04/05/20 23:30 98.4 110 16 137/90 (106) 98 Room Air Vitals with tachycardia Sp02 EP Interpretation: reviewed, normal General Appearance: well appearing, no apparent distress, alert Head: normocephalic, atraumatic Eyes: bilateral eye PERRL, bilateral eye EOMI ENT: hearing grossly normal, normal pharynx Neck: full range of motion, supple, no meningismus Respiratory: chest non-tender, lungs clear, normal breath sounds Cardiovascular #1: regular rate, rhythm - Heart rate 100, no murmur Gastrointestinal: normal bowel sounds, non tender, no mass, no organomegaly, no bruit, non-distended Musculoskeletal: back normal, normal range of motion, gait/station normal Psychiatric: mood/affect normal Medical Decision Making Diagnostic Impression: Primary Impression: Palpitations Additional Impression: Headache Qualified Codes: G44.209 - Tension-type headache, unspecified, not intractable ER Course Patient with palpitation. I suspect this is more anxiety related. No evidence of ACS, PE, dissection review. Heart rate is sinus here. EKG unchanged. Will discharge home. EKG Diagnostic Results Rate: normal Rhythm: NSR Rhythm Strip Diag. Results EP Interpretation: yes Rate: 100 Rhythm: NSR, no PVC's, no ectopy Last Vital Signs Date Time Temp Pulse Resp B/P (MAP) Pulse Ox O2 Delivery O2 Flow Rate FiO2 04/05/20 23:52 98.4 100 16 137/90 98 Room Air Status: improved Disposition: HOME, SELF-CARE Condition: Stable Referrals: [facility],REFERR[facility] (PCP) Patient Instructions: Palpitations Additional Instructions: Take your blood pressure medication. Follow-up with your doctor in 7 days. You may need a referral to see a psychiatrist also. Return if symptoms worsen. Rai Barros MD Apr 05, 2020 23:59
[2020-04-06 00:13] VITALS: BP 140/85
== END 2020-04-06 00:14 | disposition home or self-care (01) ==
LOC: EMR 23:50
DX: R00.2 Palpitations (principal); G44.209 Tension-type headache, unspecified, not intractable; I10 Essential (primary) hypertension
CPT/HCPCS: 93005; Z7502; 99283

== ENCOUNTER 2020-04-12 04:05 | Emergency (ER) | payer MEDICAID ==
[~2020-04-12] VITALS: Ht 167.6 cm; Wt 90.7 kg
--- NOTE | 2020-04-12 04:09 | NUR ---
ED Nurse Note: pt ambulated into ed from home CO BELLO 9/10 on right side of head that started today when pt woke up in the morning. Pt aao x 4, ambulates with steady gait, VSS no ss of distress noted. Pt states that he was [place] [facility] for same reason with no resolve. Pt states he was given Sumatriptan for BELLO at home but states that medication has brought no relief. ERMD at bedside. Pt placed in gown and on monitor. UA sent to lab. Awaiting further orders.
[2020-04-12 04:19] VITALS: BP 151/105
[2020-04-12] MEDS ORDERED: DiphenhydrAMINE 50mg/ml Inj IVP ONE (04:30)
[2020-04-12] MEDS ORDERED: Ketorolac 30mg Inj IV ONE (04:30)
--- NOTE | 2020-04-12 04:30 | NUR ---
ED Nurse Note: all medications administered, pt tolerated well no ss of distress noted. will continue to monitor.
--- NOTE | 2020-04-12 04:31 | Emergency Room Report ---
History of Present Illness General Chief Complaint: Headache Source: Patient Present Illness HPI 50-year-old male with history of bipolar disorder on Depakote, chronic headaches , here with headache. Patient has been seen here many times in this emergency department for the same complaint. He goes to many other emergency departments throughout the city and has undergone many CT scans for his headaches all of which have been normal. Patient was seen at [facility] yesterday and had a CT scan with IV contrast that was normal. Patient has an appointment with his primary care provider in 3 days and he will be referred to a neurologist at that time. Has never seen a neurologist before for these headaches. Of note the patient had a slightly subtherapeutic Depakote level last time he was here in this emergency department several days ago, at that time he was taking 250 mg of Depakote daily but since then has been taking 500 mg of Depakote daily. Patient's headache is the same as the headaches he always has had. It is located diffusely in his head, describes it as a "tight band" around his head. Not associated with any aura, other vision changes, focal numbness or weakness, neck pain, neck stiffness. It is gradual in onset. No fevers, chills, chest pain, palpitations, shortness of breath, back pain, abdominal pain, nausea, vomiting, diarrhea, dysuria. Allergies: Coded Allergies: No Known Allergies (Unverified , 03/27/14) COVID-19 Screening Contact w/high risk pt: No Recent Travel to affected area: No Experienced COVID-19 symptoms?: No COVID-19 Testing performed AUDIENCE DEVELOPMENT MANAGER: No Nursing Documentation-PM Past Medical History: No History, Except For Hx Hypertension: Yes Review of Systems All Other Systems: negative except mentioned in HPI Physical Exam Vital Signs Date Time Temp Pulse Resp B/P (MAP) Pulse Ox O2 Delivery O2 Flow Rate FiO2 04/12/20 04:09 97.9 102 15 151/105 (120) 99 Room Air Sp02 EP Interpretation: reviewed, normal General Appearance: no apparent distress, alert, non-toxic Head: normocephalic, atraumatic Eyes: bilateral eye normal inspection, bilateral eye PERRL ENT: hearing grossly normal, normal pharynx, no angioedema, normal voice Neck: full range of motion, supple/symm/no masses Respiratory: chest non-tender, lungs clear, normal breath sounds, speaking full sentences Cardiovascular #1: regular rate, rhythm, no edema Cardiovascular #2: 2+ carotid (R), 2+ carotid (L), 2+ radial (R), 2+ radial (L) , 2+ dorsalis pedis (R), 2+ dorsalis pedis (L) Gastrointestinal: normal bowel sounds, non tender, soft, non-distended, no guarding, no rebound Rectal: deferred Genitourinary: normal inspection, no CVA tenderness Musculoskeletal: back normal, normal range of motion, calf tenderness, gait/ station normal, non-tender Neurologic: alert, motor strength/tone normal, sensory intact, responsive, speech normal, normal gait, grossly normal, no focal defects Psychiatric: judgement/insight normal, memory normal, mood/affect normal, no suicidal/homicidal ideation Lymphatic: no adenopathy Medical Decision Making Diagnostic Impression: Primary Impression: Headache Additional Impression: Bipolar disorder ER Course 50-year-old male very well-known to this emergency department for many visits for headaches here yet again with a headache. The headache was not concerning for any acute intracranial process or life-threatening cause such as subarachnoid hemorrhage, mass, meningitis, encephalitis. He was seen at another emergency department yesterday where he had a CT scan with IV contrast that was unremarkable. Patient has an appointment with a primary care provider to be referred to a neurologist in 3 days. He had a normal neurologic examination, was well-appearing, did not appear toxic. No neck stiffness or meningismus. He was given Compazine, Benadryl, Toradol, IV fluids with good resolution of his headache. He has been taking ibuprofen at home. We will follow-up with his primary care provider. Discharged in stable condition. Last Vital Signs Date Time Temp Pulse Resp B/P (MAP) Pulse Ox O2 Delivery O2 Flow Rate FiO2 04/12/20 04:09 97.9 102 15 151/105 (120) 99 Room Air Scripts Acetaminophen* (TYLENOL EXTRA STRENGTH*) 500 Mg Tablet 500 MG ORAL Q6H PRN for Mild Pain/Temp > 100.5, #20 TAB 0 Refills Prov: Daniel Clayton M.D. 04/12/20 Daniel Clayton M.D. Apr 12, 2020 04:31
[2020-04-12] MEDS ORDERED: TYLENOL EXTRA500 MG ORAL (04:41)
--- NOTE | 2020-04-12 05:30 | NUR ---
ED Nurse Note: Pt states that IV site is painful and insists IV be removed. IV removed, ERMD notified and aware. Pt denies residual pain after removal. Will continue to monitor.
[2020-04-12] MEDS ORDERED: AMLODIPINE BESY10 MG ORAL (05:47)
[2020-04-12 05:48] VITALS: BP 135/85
--- NOTE | 2020-04-12 05:48 | NUR ---
ER DISCHARGE NOTE: Patient is cleared to be discharged home per ERMD, pt is aox4, 99% on room air, with stable vital signs. pt was given dc and prescription instructions, pt was able to verbalize understanding, pt id band and iv site removed without complications. pt is able to ambulate with steady gait. pt took all belongings.
== END 2020-04-12 05:48 | disposition home or self-care (01) ==
LOC: EMR 04:23
DX: R51 Headache (principal); F31.9 Bipolar disorder, unspecified; I10 Essential (primary) hypertension
CPT/HCPCS: 96361; 96374; 96375; J0780; J1200; J1885; J7030; Z7502; 99284

== ENCOUNTER 2020-04-18 01:21 | Emergency (ER) | payer MEDICAID ==
[~2020-04-18] VITALS: Ht 167.6 cm; Wt 90.7 kg
[~2020-04-18 01:21] MED LIST changes: +AMLODIPINE BESY10 MG ORAL
--- NOTE | 2020-04-18 01:27 | Emergency Room Report ---
History of Present Illness General Chief Complaint: To Be Triaged Source: Patient Present Illness HPI 50-year-old male with past medical history of bipolar disorder, chronic headaches, hypertension, depression here with complaint of anxiety about his high blood pressure. Patient is frequently here in the emergency department for similar complaints. The last time he was here, he had complaint of headaches for which he was referred to neurology (Appointment this week) States that the reason he is here is he took his blood pressure at home and it was elevated at 171mmHg so he became anxious. He denies any subjective complaints at this time He took Ativan 1 mg p.o. at home and has been compliant with his blood pressure medications, but they did not correct his blood pressure so decided to come to the ER for a "check up". He denies any complaint of headache, vision changes, focal weakness, slurred speech, neck pain, back pain, chest pain, SOB, abdominal pain, weakness or other symptoms. He denies SI, HI, auditory or visual hallucinations The patient's symptoms were gradual onset, severity was moderate, duration since 1 day. Quality: Denies pain Past medical history: Hypertension, chronic headaches, bipolar, depression Past surgical history: Denies Smoking: Occasional Alcohol use: Occasional Drug use: Denies Review of systems: CONST: No fevers or chills, No night sweats PULMONARY: No productive cough, No shortness of breath CARDIAC: No chest pain, No palpitations GI: No vomiting, No diarrhea , No melena_or_BRBPR : No dysuria, No hematuria, No discharge NEURO: No new_focal_weakness_or_numbness, No confusion, No vision changes 14 point Review of Systems is otherwise negative except per HPI Physical Exam: GENERAL: Awake_alert_ nontoxic, no acute distress Spo2 100% on RA -normal EYES: Extraocular muscles are intact. Conjunctivae clear. Lids without swelling ENT: External nose and ear normal_in_appearance. Oropharynx clear. Head_atraumatic, Moist_oral_mucosa NECK: No JVD. No meningismus. No thyromegaly. Supple. Trachea midline RESP: Normal respiratory effort. Symmetric rise. No stridor. Clear_to_auscultation_No_rales_No_wheezes CARDIAC: Tachycardic and regular rhytm. No_significant pedal edema. ABDOMEN: Soft. Nondistended. Nontender_No_rebound_or_guarding. MSK: Normal muscle tone, without rigidity. Extremities without asymmetric deformity or swelling. SKIN: Warm and dry. No visible cyanosis or pallor NEUROLOGIC: Alert, oriented x3. Motor_and_sensation_grossly_intact. No truncal ataxia. Gait_normal Psych: Normal mood and affect, normal judgment and insight - COORDINATION OF CARE Case was discussed with: Patient Any labs and imaging that were ordered were interpreted as part of the medical decision making: Medical Decision Making/Plan: Differential diagnosis includes anxiety attack, generalized anxiety disorder, stress reaction, hypertension Patient is neurologically intact and acting appropriate. He denies any subjective complaint of pain at this time. He just states that he is anxious due to his high blood pressure. EKG demonstrates sinus tachycardia with no signs of acute ischemia. He is mildly tachycardic, which when compared to previous ER visits is around his normal baseline. Blood pressure is hypertensive, but not in the malignant range. CXR is unremarkable The patient was observed for a period of time in the ED with serial exams. Symptoms resolved after getting ativan in ED. The patients presentation seems to be consistent with anxiety, without any evidence of dangerous arrhythmias, thyrotoxicosis, metabolic / endocrinologic emergency, or indication for emergency psychiatric evaluation. The patient appears to be stable for dc home and follow with PMD/neurology/psychiatry as an outpatient. Strict return ER precautions discussed Allergies: Coded Allergies: No Known Allergies (Unverified , 03/27/14) COVID-19 Screening Contact w/high risk pt: No Recent Travel to affected area: No Experienced COVID-19 symptoms?: No Nursing Documentation-PMH Hx Hypertension: Yes Physical Exam Sp02 EP Interpretation: reviewed, normal Medical Decision Making Diagnostic Impression: Primary Impression: Anxiety Additional Impression: Hypertension EKG Diagnostic Results PA Scribe Text 12-lead EKG (interpreted by me) Time: 0136 Indication: Rhythm analysis Tracing visualized and Interpreted by me. Rhythm: Sinus tachycardia Rate: 103 bpm QTc: 466 Morphology: No_significant_ST_elevations_or_depressions, No STEMI Impression: Sinus tachycardia. Normal axis. Normal intervals. Chest X-Ray Diagnostic Results Chest X-Ray Diagnostic Results : PA Scribe Text Chest X-Ray: Views: [ 1 ] view(s) Indication: Anxiety Findings: Normal heart size. Mediastinum normal. No infiltrate. Impression: NAD The X-ray(s) were independently viewed and interpreted contemporaneously Electronically signed by Michelle sotelo DO Disposition: HOME, SELF-CARE Admit Decision Time: 01:54 Condition: Stable Patient Instructions: Generalized Anxiety Disorder, Hypertension, [id number] Additional Instructions: Instructions for patient/instruction assistant principal: Follow up with your physician in 1-2 days. Follow-up with your neurologist as scheduled. Follow-up with your outpatient psychiatrist as scheduled. Follow-up with your doctor sooner if your condition requires a more timely clinical reevaluation. Return to the emergency department immediately if you feel that your condition is worsening or if you have any new or concerning symptoms. Review your discharge instructions and take any prescriptions given as instructed. [facility]IT[facility] FOR L[facility] COST HEALTH [facility] [address] [facility] [address] [place] [address] [place] [address] [facility] [address] [facility] [address] [place] [address] [place] [address] [facility] [address] [place] [address] [facility] [place] [facility] [address] [address] [place] [address] [place] [address] [facility] [address] [place] [address] [place] [address] [facility] [address] [place] [address] [facility] PROVIDES FREE OR LOW-COST HEALTH SERVICES TO PEOPLE WHO CAN SHOW PROOF THAT THEY LIVE IN [facility]. TO FIND MORE CLINICS PARTNERED WITH THE [facility] TO PROVIDE SERVICE, PLEASE CALL . [facility] Michelle Gordon D.O. Apr 18, 2020 01:27
--- NOTE | 2020-04-18 01:30 | NUR ---
ED Nurse Note: Patient walked into the ED with c/o hypertension. Patient stated he walked for a mile as an exercise and when he checked his BP and HR after resting at home it was high. Patient took ativan and amlodipine at 2000 but with no relief. Patient is on anti hpn and anti psychotic meds. PAtient denies chest pain, SOB/. PAtient is AAOx4 and ambulatory. Placed on monitor bed.
--- NOTE | 2020-04-18 01:31 | NUR ---
ED Nurse Note: ERMD at bedside
[2020-04-18 01:45] VITALS: BP 149/91
--- NOTE | 2020-04-18 01:45 | NUR ---
ED Nurse Note: Blood sent to lab
[2020-04-18] MEDS ORDERED: LORazepam 0.5mg tab ORAL ONE (02:00)
--- NOTE | 2020-04-18 02:12 | Diagnostic Imaging Report ---
EXAM: XR Chest, 1 View CLINICAL HISTORY: HTN TECHNIQUE: Frontal view of the chest. COMPARISON: Chest radiograph dated 03/12/2020 FINDINGS: Lungs: Unremarkable. No consolidation. Pleural space: Unremarkable. No pneumothorax. Heart: Unremarkable. No cardiomegaly. Mediastinum: Unremarkable. Bones/joints: Unremarkable. IMPRESSION: No acute cardiopulmonary disease.
[2020-04-18 02:16] LABS: BASOPHILS % (AUTO) 1.8 % (0.0-2.0); EOSINOPHILS % (AUTO) 4.2 % (0.0-3.0); HEMATOCRIT 40.4 % (42.0-52.0); HEMOGLOBIN 14.6 G/DL (14.2-18.0); LYMPHOCYTES % (AUTO) 29.1 % (20.0-45.0); MEAN CORPUSCULAR VOLUME 86 FL (80-99); MONOCYTES % (AUTO) 6.7 % (1.0-10.0); NEUTROPHILS % (AUTO) 58.3 % (45.0-75.0); PLATELET COUNT 246 K/UL (150-450); RED BLOOD COUNT 4.67 M/UL (4.70-6.10); RED CELL DISTRIBUTION WIDTH 11.3 % (11.6-14.8); WHITE BLOOD COUNT 7.5 K/UL (4.8-10.8)
[2020-04-18 02:28] LABS: ANION GAP 8 mmol/L (5-15); BLOOD UREA NITROGEN 10 mg/dL (7-18); CARBON DIOXIDE 25 MMOL/L (21-32); CHLORIDE 102 MMOL/L (98-107); CREATININE 0.8 MG/DL (0.55-1.30); POTASSIUM 3.7 MMOL/L (3.5-5.1); SODIUM 135 MMOL/L (136-145)
[2020-04-18 02:33] LABS: ALANINE AMINOTRANSFERASE 77 U/L (12-78); ALBUMIN 4.2 G/DL (3.4-5.0); ALBUMIN/GLOBULIN RATIO 1.2 (1.0-2.7); ALKALINE PHOSPHATASE 64 U/L (46-116); ASPARTATE AMINO TRANSFERASE 23 U/L (15-37); BILIRUBIN,TOTAL 0.3 MG/DL (0.2-1.0)
[2020-04-18 03:05] VITALS: BP 132/92
[2020-04-18 03:30] VITALS: BP 139/84
== END 2020-04-18 03:32 | disposition home or self-care (01) ==
LOC: EMR 01:37
DX: F41.9 Anxiety disorder, unspecified (principal); I10 Essential (primary) hypertension; R00.0 Tachycardia, unspecified; F31.9 Bipolar disorder, unspecified; F32.9 Major depressive disorder, single episode, unspecified
CPT/HCPCS: 36415; 71045; 80053; 84484; 85025; 93005; Z7502; 99283